=== PATIENT | male | born 1945 | race Two or more races ===

== ENCOUNTER 2024-10-02 13:32 | Outpatient (AMB) | payer OTHER, SELFPAY ==
--- NOTE | 2024-10-02 13:38 | MHC.OFFVIS ---
Vital Signs 10/02/24 14:00 Height 5 ft 2 in Weight 148 lb BMI 27.1 BP 122/82 Blood Pressure Location Lt brachial Position Sitting Intake Visit Reasons: cholelithiasis Intake Note: Patient is seen in office for evaluation of the gallbladder. Pt c/o: 3 wks ago had increase upper abdomen pain, went to ED in [facility], admits to nausea, was a one time episode Hotel And Dining Room Cashier Required: Yes Hotel And Dining Room Cashier Language: Ore Trimmer Services: Hotel And Dining Room Cashier Present Hotel And Dining Room Cashier Name: Lisa MCDUFFIE Information Interpreted: non-clinical & clinical Accompanied by: Self / Same As Patient Allergies No Known Allergies Allergy (Verified 10/02/24 13:46) Medication List - Last Reconciled 10/02/24 by Kolton Valentine MD amlodipine 5 mg PO DAILY aspirin 81 mg PO DAILY atorvastatin 80 mg PO DAILY cholecalciferol (vitamin D3) 325 mcg PO QWEEK docusate sodium (Colace) 100 mg PO BID doxazosin 2 mg PO DAILY metformin 500 mg PO BID metoprolol succinate ER 50 mg PO DAILY nitroglycerin 0.4 mg sublingual Q5M PRN HPI Comments Details: 79-year-old male patient presenting with complaints of abdominal pain in the epigastrium and right upper quadrant which began at approximately 03:00 on 09/06/2024. He was subsequently evaluated in the emergency department at [facility]. The pain was associated with nausea without vomiting. He denied a previous history of similar pain. Workup in the emergency department revealed gallstones within the gallbladder without a Villanueva sign. He was subsequently discharged to home but noted another day of abdominal pain following this episode. He presents today to discuss possible cholecystectomy. He felt the pain was very severe and does not want to go through this once again. COUNT INCLUDES [facility] Medical History (Updated 10/02/24 @ 15:05 by Kolton Valentine MD) Hypertension BPH (benign prostatic hyperplasia) CAD (coronary artery disease) Surgical History (Updated 10/02/24 @ 14:09 by Kolton Valentine MD) S/P CABG x 4 Hx of heart surgery Social History Alcohol intake: current Alcohol intake frequency: holidays/special occasions only Patient Tobacco Use Status: Never used Tobacco Review of Systems Const All systems reviewed & are unremarkable except as noted in HPI and below Physical Exam Vital Signs: Last Vital Signs BP 122/82 10/02/24 14:00 BMI result Body Mass Index 27.1 Const General: cooperative and no acute distress Nutritional Appearance: well nourished Orientation/consciousness: patient oriented x3 Limitations: no limitations HEENT Head: Yes normocephalic and Yes atraumatic Ears: hearing grossly normal bilaterally Resp Effort & Inspection: normal respiratory effort, no audible wheezes, no cough and no respiratory distress Cardio Jugular venous distension: no JVD GI Inspection: Yes normal to inspection Palpation (GI): Soft to palpation, nontender, no guarding and No hepatosplenomegaly present Percussion: Yes normal to percussion Auscultation: normal bowel sounds Rectal Exam - Male: Yes deferred Skin Other: Warm, dry, no rash Neuro General: patient oriented x3 Extrem General: Yes no clubbing, cyanosis or edema Assessment & Plan Assessment & Plan (1) Cholelithiasis: Code(s): K80.20 - Calculus of gallbladder without cholecystitis without obstruction Category: Medical Qualifiers: Biliary obstruction: without biliary obstruction Cholecystitis acuity: acute Cholelithiasis location: gallbladder (2) Biliary colic: Code(s): K80.50 - Calculus of bile duct without cholangitis or cholecystitis without obstruction Category: Medical Plan 79-year-old male patient presenting with complaints of abdominal pain in the right upper quadrant and epigastrium found to have gallstones with pericholecystic fluid. The pain subsequently improved however the patient was quite concerned about the severity of his pain. Currently the patient has no ongoing symptoms and on examination his abdomen is soft and nondistended, nontender. We discussed observation verses laparoscopic cholecystectomy. He wishes to proceed with the surgery. After discussion of the procedure, risks, and alternatives, he consents to a laparoscopic or possible open cholecystectomy. Coding Level of Care Code New Pt Level 4 (26351) Diagnoses Cholelithiasis K80.20 Biliary obstruction: without biliary obstruction Cholecystitis acuity: acute Cholelithiasis location: gallbladder Biliary colic K80.50
[2024-10-02 14:00] VITALS: BP 122/82; BMI 27.1
--- OUTSIDE RECORDS SUMMARY | 2024-10-02 14:34 | XMS_ITS | Encounter Summary ---
Author Organization [employer] Address [address] [place] [address] Care Team Providers Care Ui Architect Name Role Phone Unavailable Primary Care Provider Unavailabl e Reason for Visit * Reason Onset Date Comments case back from lab??/appt 11/09/2023 Encounter Details Date Type Department Care Team (Late st Contact Info) Description 11/09/2023 Telephone [facility] [address] [place] [address] Deirdre Heath DDS [address] [place] [address] case back from lab??/appt Social History Tobacco Use Types Packs/Day Years Used Date Smoking Tobacco: Never Assessed Alcohol Use Standard Drinks/Week Comments Defer 0 (1 standard drink = 0.6 oz pur e alcohol) Sex and Gender Information Value Date Recorded Sex Assigned at Male 08/13/2023 1:56 PM EDT Legal Sex Male 1:45 PM EDT Gender Identity Male 08/13/2023 1:56 PM EDT Sexual Orientation Straight 08/13/2023 1: 56 PM EDT documented as of this encounter Miscellaneous Notes * Telephone Encounter - Siddharth Rodriguez DDS - 11/15/2023 3:50 PM EDT Kenrick Ryder, Case is here, could you please book an appointment with Dr. Cooper for Wax Trying . Thanks, Dr. Rodriguez * Telephone Encounter - Britni Key - 11/15/2023 10:26 AM EDT Message for Dr. Cooper Patient calling in to confirm if case is back from lab. * Telephone Encounter - Sugar Orantes - 11/09/2023 12:09 PM EDT Patient called about his dentures can we finf if there here and book the patient for dr cooper documented in this encounter Plan of Treatment Not on file documented as of this encounter Visit Diagnoses Not on filedocumented in this encounter
--- OUTSIDE RECORDS SUMMARY | 2024-10-02 14:34 | XMS_ITS | Clinical Summary ---
Author Organization [facility] Address [address] [place] [address] Care Team Providers Care Combination Machine Tender Name Role Phone Everette Hastings MD Primary Care Provider Unavailab le Allergies No known active allergies Medications Medication Sig Dispensed Refills Start Date End Date Status metoprolol succinate (TOPROL-XL) 24 hr tablet 50 mg Take 1 tablet (50 mg total) by mouth daily. 0 Active metFORMIN (GLUCOPHAGE) tablet 500 mg Take 1 tablet (500 mg total) by mouth 2 (two) times a day with meals. 0 Active doxazosin (CARDURA) 2 MG tablet Take 1 tablet (2 mg total) by mouth every night at bedtime. 0 Active amLODIPine (NORVASC) tablet 5 mg Take 1 tablet (5 mg total) by mouth daily. 0 Active atorvastatin (LIPITOR) tablet 80 mg Take 1 tablet (80 mg total) by mouth daily. 0 Active aspirin EC 81 MG tablet Take 1 tablet (81 mg total) by mouth daily. 0 Active Cholecalciferol (Vitamin D3) 50 MCG (2000 UT) TABS Take 2,000 Units by mouth daily. 0 Active Cyanocobalamin 1000 MCG CAPS Take 1 capsule by mouth daily. 90 capsule 1 03/21/2024 Active Social History Tobacco Use Types Packs/Day Years Used Date Smoking Tobacco: Former Cigarettes Tobacco Cessation:Counseling Given: Not Answered Comments:Quit smoking at least 30 years ago Alcohol Use Standard Drinks/Week Comments Yes 0 (1 standard drink = 0.6 oz pur e alcohol) 2-3 beers once a week Sex and Gender Information Value Date Recorded Sex Assigned at Not on file Gender Identity Not on file Sexual Orientation Not on file Job Start Date Occupation Industry Not on file Not on file Not on file Last Filed Vital Signs Vital Sign Reading Time Taken Comments Blood Pressure 139/64 03/21/2024 1:24 PM EDT Pulse 65 03/21/2024 1:24 PM EDT Temperature 36.5 ??C (97.7 ??F) 03/21/2024 1:24 PM ED T Respiratory Rate - - Oxygen Saturation 98% 03/21/2024 1:24 PM EDT Inhaled Oxygen Concentration - - Weight 67 kg (147 lb 12.8 oz) 03/21/2024 1:24 PM EDT Height 154.9 cm (5' 1 ) 03/06/2024 10:43 AM EDT Body Mass Index 27.93 03/06/2024 10:43 AM EDT Plan of Treatment Health Maintenance Due Date Last Done Comments Hepatitis C Screening 1945 COVID-19 Vaccine (#1) 1945 Depression Screening 1957 Preventative Health Evaluation 1963 Shingrix-Zoster Vaccine (1 of 2) 1995 Fall Risk Assessment 2010 RSV Adult > 60+ Yrs or (1 - 1-dose 75+ series) 2020 Influenza Vaccine (#1) 2024 9, 02/08/2018, 02/26/2017, Additional history exists DTap / Tdap / Td (2 - Td or Tdap) 03/11/2029 03/11/2019 Pneumococcal Vaccine Completed 01/29/2019, 02/09/20 18 Hepatitis B Vaccines Aged Out No long er eligible based on patient's age to complete this topic RSV Ped < 20 months Aged Out No longe r eligible based on patient's age to complete this topic Care Teams Combination Machine Tender Relationship Specialty Start Date End Date Everette Hastings MD PCP - General Internal Medicine 01/30/24
--- OUTSIDE RECORDS SUMMARY | 2024-10-02 14:34 | XMS_ITS | Clinical Summary ---
Author Organization [employer] Address [address] [facility] [address] [facility] [address] [place] [address] Care Team Providers Care Train Caller Name Role Phone Unavailable Primary Care Provider Unavailabl e Allergies No known active allergies Medications metFORMIN (Glucophage) 500 MG tablet 08/11/2023 Active atorvastatin (Lipitor) 80 MG tablet Take 80 mg by mouth. 07/19/2021 Active amLODIPine (Norvasc) 5 MG tablet Take 1 tablet by mouth in the morning. 09/12/2021 Active amLODIPine (Norvasc) 5 MG tablet Take 5 mg by mouth. 02/03/2021 Active doxazosin (Cardura) 2 MG tablet Take 2 mg by mouth. 06/07/2020 Active metoprolol succinate XL (Toprol-XL) 50 MG 24 hr tablet 08/29/2023 Act tae cholecalciferol (Vitamin D-3) 25 MCG (1000 UT) capsule Take by mouth. 06/30/2020 Active aspirin 81 MG EC tablet Take 81 mg by mouth Once per day. Active Active Problems Problem Noted Date Diagnosed Date CAD (coronary artery disease) 09/07/2023 HTN (hypertension) 09/07/2023 Simple renal cyst 09/07/2023 S/P CABG x 4 09/07/2023 Encounter for abdominal aortic aneurysm (AAA) sc reening 03/11/2019 Exposure to hepatitis 03/11/2019 Benign prostatic hyperplasia with lower urinary tract symptoms 11/25/2018 Essential hypertension 11/25/2018 Social History Tobacco Use Types Packs/Day Years Used Date Smoking Tobacco: Never Smokeless Tobacco: Never Tobacco Cessation:Counseling Given: Not Answered Alcohol Use Standard Drinks/Week Comments Never 0 (1 standard drink = 0.6 oz pur e alcohol) Sex and Gender Information Value Date Recorded Sex Assigned at Male 08/13/2023 1:56 PM EDT Legal Sex Male 1:45 PM EDT Gender Identity Male 08/13/2023 1:56 PM EDT Sexual Orientation Straight 08/13/2023 1: 56 PM EDT Last Filed Vital Signs Vital Sign Reading Time Taken Comments Blood Pressure 132/70 11/16/2023 1:37 PM EDT Pulse - - Temperature - - Respiratory Rate - - Oxygen Saturation - - Inhaled Oxygen Concentration - - Weight - - Height - - Body Mass Index - - Plan of Treatment Health Maintenance Due Date Last Done Comments Dental Prophylaxis 1945 Dental X-Ray: Bitewings 1945 Depression Screening 1945 Lipid Panel 1945 SDOH Screening 1945 Alcohol/Substance Use Screening 1957 Hepatitis C Screening 1963 Zoster Vaccines (2 of 3) 11/18/2015 09/23/2015 RSV Patients and Patients Aged 60 years or older (1 - 1-dose 75+ series) 2020 COVID-19 Vaccine ( season) 2024 03/11/2023, 02/06/2022, 08/21/2021, Additional history exists Influenza Vaccine (#1) 2024 , 02/06/2022, 01/19/2021, Additional history exists Dental Oral Exam 03/09/2024 09/07/2023 Tobacco Screening 11/22/2024 11/23/2023 Dental X-Ray: Full Mouth 09/28/2026 09/28/2023 DTaP/Tdap/Td Vaccines (3 - Td or Tdap) 03/11/2029 03/11/2019, 01/05/2017 Pneumococcal Vaccine: 50+ Years Completed 01/29/2019, 02/08/2018, 03/22/2017, Additional history exists HIB Vaccines Aged Out No longer eligi ble based on patient's age to complete this topic HPV Vaccines Aged Out No longer eligi ble based on patient's age to complete this topic Hepatitis A Vaccines Aged Out No long er eligible based on patient's age to complete this topic Hepatitis B Vaccines Aged Out No long er eligible based on patient's age to complete this topic IPV Vaccines Aged Out No longer eligi ble based on patient's age to complete this topic Meningococcal Vaccine Aged Out No jean willy eligible based on patient's age to complete this topic RSV under 20 months Aged Out No longe r eligible based on patient's age to complete this topic Rotavirus Vaccines Aged Out No longer eligible based on patient's age to complete this topic Procedures Procedure Name Priority Date/Time Associated Diagnosis Comments PANORAMIC RADIOGRAPHIC IMAGE Routine 09/28/2023 10:00 AM EDT Edentulous COMPREHENSIVE ORAL EVALUATION - NEW OR ESTABLISHED PATIENT Routine 09/07/2023 1:30 PM EDT Encounter for dental examination Edentulous from Last 3 Months or Most Recently Relevant to Health Maintenance Insurance DENTAL - HSN FULL (MEDICAID)
--- OUTSIDE RECORDS SUMMARY | 2024-10-02 14:34 | XMS_ITS | Encounter Summary ---
Author Organization [facility] Address [address] [place] [address] Care Team Providers Care Motor Vehicles Supervisor Name Role Phone Everette Hastings MD Primary Care Provider [phone] Encounter Details Date Type Department Care Team (Late st Contact Info) Description 03/21/2024 1:05 PM EDT Hospital Encounter TH HISTORIC ENCOUNTERS EASTERN CONVERSION ONLY Christine Perez PA [address] [place] [id number] Social History Tobacco Use Types Packs/Day Years [...] Perez PA-C Service: -- Author Type: Physician Insole Tacker Filed: 03/21/2024 2:15 PM Encounter Date: 03/21/2024 Status: Signed Charging Crane Operator: Christine Perez PA-C (Physician Insole Tacker) Cosigner: Mahin Beyer MD at 03/23/2024 3:[address] Venkata Gaviria, Thank you very much for referring this patient for consultation. HPI: 78-year-old Trinidadian-speaking male who returns to our hematology clinic [...] COLONOSCOPY 11/23/2014 ? 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 FAMILY HISTORY: No family history [...] Hastings MD Sign: Christine Perez PA-C Hematology/Oncology [facility] [phone] documented in this encounter Plan of Treatment Upcoming Encounters Date Type Department Care Team (Late st Contact Info) Description 12/24/2024 11:00 AM EDT Office Visit Internal Medicine - [place] [address] [place] [address] Everette Hastings MD 175 [facility] [address] [place] [address] 09/22/2025 1:30 PM EDT Office Visit [facility] Hematology Oncology [address] [place] [phone] Christine Perez PA [address] [place] [address] documented as of this encounter Procedures Procedure Name Priority Date/Time Associated Diagnosis Comments ..MISCELLANEOUS REFERENCE LAB TEST 03/21/2024 ..MISCELLANEOUS REFERENCE LAB TEST 03/21/2024 documented in this encounter Results * Miscellaneous reference lab test (03/21/2024) us Provider Onbase MD LAB BLOOD ORDERABLES Final Re sult * Miscellaneous reference lab test (03/21/2024) us Provider Onbase MD LAB BLOOD ORDERABLES Final Re sult documented in this encounter Visit Diagnoses Not on filedocumented in this encounter Care Teams Motor Vehicles Supervisor Relationship Specialty Start Date End Date Everette Hastings MD [address] [address] PCP - General 01/30/24 documented as of this encounter
--- OUTSIDE RECORDS SUMMARY | 2024-10-02 14:34 | XMS_ITS | Encounter Summary ---
Author Organization [facility] Address [address] [place] [address] Care Team Providers Care Pulping Machine Operator Name Role Phone Everette Hastings MD Primary Care Provider [phone] Encounter Details Date Type Department Care Team (Late st Contact Info) Description 03/06/2024 10:30 AM EDT Hospital Encounter TH HISTORIC ENCOUNTERS EASTERN CONVERSION ONLY Christine Perez PA [address] [place] [phone] Social History Tobacco Use Types Packs/Day Years [...] Perez PA-C Service: -- Author Type: Physician Engineer Second Assistant Filed: 03/06/2024 11:08 AM Encounter Date: 03/06/2024 Status: Signed Recycle Driver: Christine Perez PA-C (Physician Engineer Second Assistant) Cosigner: Mahin Beyer MD at 03/06/2024 11:56 [...] COLONOSCOPY 11/23/2014 ? 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 FAMILY HISTORY: History reviewed. No pertinent family [...] Hastings MD Sign: Christine Perez PA-C Hematology/Oncology [facility] [phone] documented in this encounter Plan of Treatment Upcoming Encounters Date Type Department Care Team (Late st Contact Info) Description 12/24/2024 11:00 AM EDT Office Visit Internal Medicine - [place] [address] [phone] Everette Hastings MD 175 [facility] [address] [place] [address] 09/22/2025 1:30 PM EDT Office Visit [facility] Hematology Oncology [address] [place] [phone] Christine Perez PA [address] [place] [address] documented as of this encounter Procedures Procedure Name Priority Date/Time Associated Diagnosis Comments ..MISCELLANEOUS REFERENCE LAB TEST 03/06/2024 documented in this encounter Results * Miscellaneous reference lab test (03/06/2024) us Provider Onbase LAB BLOOD ORDERABLES Final Re sult documented in this encounter Visit Diagnoses Not on filedocumented in this encounter Care Teams Pulping Machine Operator Relationship Specialty Start Date End Date Everette Hastings MD [address] [place] [address] PCP - General 01/30/24 documented as of this encounter
--- OUTSIDE RECORDS SUMMARY | 2024-10-02 14:35 | XMS_ITS | Clinical Summary ---
Author Organization [facility] Address [address] [place] [address] Care Team Providers Care Lockstitch Sleeve Setter Name Role Phone Dillan Dumont Primary Care Provider [phone] Source Comments PLEASE NOTE, if this patient is a minor, it may be UNLAWFUL to discuss sensitive information that is contained in these records (such as FAMILY PLANNING, MENTAL HEALTH or SUBSTANCE ABUSE) with the minor patient's parent or other person without the patient's specific authorization.[facility] Allergies No known active allergies Medications doxazosin (CARDURA) 2 mg tabletIndications :Benign prostatic hyperplasia with lower urinary tract symptoms, symptom details unspecified TAKE 1 TABLET BY MOUTH EVERYDAY AT BEDTIME 30 Tablet 3 1 Active PROLENSA 0.07 % drop INSTILL 1 DROP IN OPERATED EYE EVERY EVENING DIRECTED 3 Active amLODIPine (NORVASC) 5 mg tabletIndications :Essential hypertension Take 1 Tablet by mouth once daily 90 Tablet 1 4 Active atorvastatin (LIPITOR) 80 mg tabletIndications :Hypercholesterol emia Take one tablet by mouth daily 90 Tablet 1 4 Active metFORMIN (GLUCOPHAGE) 500 mg tabletIndications :Controlled type 2 diabetes mellitus without complication, without long-term current use of insulin ([facility]) Take one tablet by mouth twice daily. 90 Tablet 4 Active metoprolol succinate XL (TOPROL-XL) 50 mg 24 hr tabletIndications :Essential hypertension,Hype rcholesterolemia, Primary hypertension Take one tablet by mouth once daily. 90 Tablet 4 Active Active Problems Patient Care Coordination No te Formatting of this note migh t be different from the original. Pre Visit Plan, 03/11/19, for Dillan Sandra PA-C patient in for follow up - ?CPE. Fredis Bearden. Medical Records needed. 11/25/14, seen to establish care. 150/82. Active problems of BPH and essential HTN. Regimen: Doxazosin 2mg tab for 1 tab PO QHS and amlodipine 5mg. 12/09/18, BP check: 138/85. Problem Noted Date Diagnosed Date Exposure to hepatitis 03/11/2019 Encounter for abdominal aortic aneurysm (AAA) sc reening 03/11/2019 Benign prostatic hyperplasia with lower urinary tract symptoms 11/25/2018 Essential hypertension 11/25/2018 Immunizations Immunization Administration Dates Next Due Influenza (FLUZONE), high-do se, trivalent, PF 01/29/2019,02/08/2018,02/26/2017,03/04,02/08/2015,02/27/2014 PNEUMOCOCCAL CONJUGATE PCV 13 02/08/2018 PNEUMOCOCCAL POLYSACCHARIDE PPV23 (Pneumovax 23) 01/29/2019 TDAP 03/11/2019 Social History Tobacco Use Types Packs/Day Years Used Date Smoking Tobacco: Former Smokeless Tobacco: Never Comments:35 years ago Alcohol Use Standard Drinks/Week Comments Yes 0 (1 standard drink = 0.6 oz pur e alcohol) Social Connections Answer Date Recorded Connectedness 0 02/07/2024 Financial Resource Strain Answer Date R ecorded Financial Resource Strain 0 2018 Stress Answer Date Recorded Stress 0 01/20/2019 Physical Activity Answer Date Recorded Physical Activity 0 01/20/2019 Food Insecurity Answer Date Recorded Food 0 02/21/2024 Transportation Needs Answer Date Record ed Transportation 0 01/20/2019 Housing Stability Answer Date Recorded Housing 0 01/20/2019 Safety and Environment Answer Date Ronaldo rded Safety 0 01/20/2019 Utilities Answer Date Recorded Utilities 0 01/20/2019 Employment Answer Date Recorded Stress 0 02/07/2024 Sex and Gender Information Value Date Recorded Sex Assigned at Male 11/25/2018 10:37 AM PDT Legal Sex Male 6:28 AM PDT Gender Identity Male 11/25/2018 10:37 AM PDT Sexual Orientation Straight 11/25/2018 10 :37 AM PDT Last Filed Vital Signs Vital Sign Reading Time Taken Comments Blood Pressure 138/78 06/02/2019 2:44 PM EST Pulse 76 06/02/2019 2:44 PM EST Temperature 36.6 ??C (97.8 ??F) 06/02/2019 2:44 PM ES T Respiratory Rate 18 06/02/2019 2:44 PM EST Oxygen Saturation 100% 11/25/2018 1:39 PM EDT Inhaled Oxygen Concentration - - Weight 69.4 kg (153 lb) 06/02/2019 2:44 PM EST Height 157.5 cm (5' 2 ) 06/02/2019 2:44 PM EST Body Mass Index 27.98 06/02/2019 2:44 PM EST Plan of Treatment Health Maintenance Due Date Last Done Comments Diabetes Foot Exam 1945 Diabetes HbA1c 1945 Hepatitis C Screening 1945 Lipid Screening 1945 Serum Creatinine 1945 Tobacco Screening 1945 Urine Albumin Creatinine Rat io Screening 1945 Retinopathy Screening 1958 Imm-Zoster, Recombinant (1 of 2) 1995 Falls Prevention 2010 Alcohol and Drug Screen 05/28/2024 Depression Annual Screen 05/28/2024 [id number] ( season) 2024 02/05/2024, 03/11/2023, 02/06/2022, Additional history exists Imm-DTaP/Tdap/Td (2 - Td or Tdap) 03/11/2029 019 Imm-Pneumococcal 65+ Completed 01/29/2019, 02/09/20 18 Colorectal Cancer Screening Discontinued FIT/gFOBT Discontinued 02/17/2020, 12/03/2018 Imm-Influenza Completed 02/05/2024, 01/27, 02/06/2022, Additional history exists CT Colonography Discontinued Colonoscopy Discontinued Fecal DNA Discontinued Flexible Sigmoidoscopy Discontinued Procedures Procedure Name Priority Date/Time Associated Diagnosis Comments FECAL OCCULT BLOOD HEMOCCULT X3, MENG SUZI (POCT) Routine 02/17/2020 11:10 AM EDT Colon cancer screening from Last 3 Months or Most Recently Relevant to Health Maintenance Results * FECAL OCCULT BLOOD HEMOCCULT X3, MENG SUZI (POCT) (02/17/2020 11:10 AM EDT) FECAL OCCULT BLOOD NEGATIVE NEGATIVE [facility] PO[facility] FECAL OCCULT BLOOD #2 NEGATIVE NEGATIVE [facility] FECAL OCCULT BLOOD #3 NEGATIVE NEGATIVE [facility] Stool specimen (specimen) Stool specimen / Unknown 02/17/2020 11:10 AM EDT [facility] - BLOOD DRAW Final Result [facility] POCT from Last 3 Months or Most Recently Relevant to Health Maintenance Insurance [facility] Care Teams Lockstitch Sleeve Setter Relationship Specialty Start Date End Date Dillan Dumont PA [address] [place] [address] PCP - General Internal Medicine 10/16/18
== END 2024-10-02 14:09 | disposition home or self-care (01) ==
LOC: HO.HGS 13:33
PROVIDERS: PCP Internal Medicine; Visit Provider Surgery
DX: K80.20 Calculus of gallbladder without cholecystitis without obstruction (principal); K80.50 Calculus of bile duct without cholangitis or cholecystitis without obstruction
CPT/HCPCS: 99204

== ENCOUNTER → 2024-10-02 13:32 | Outpatient (BNVA) | payer OTHER, SELFPAY | PROVIDERS: PCP Internal Medicine; Visit Provider Surgery ==

== ENCOUNTER 2025-02-11 10:38 | Day surgery (SDC) | payer MEDICARE, SELFPAY ==
--- OUTSIDE RECORDS SUMMARY | 2024-03-06 10:30 | XMS_ITS | Encounter Summary ---
Author Organization [facility] Address [address] [place] [address] Care Team Providers Care Clinical Specialist Medical Device Name Role Phone Everette Hastings MD Primary Care Provider [phone] Encounter Details Date Type Department Care Team (Late st Contact Info) Description 03/06/2024 10:30 AM EDT Hospital Encounter TH HISTORIC ENCOUNTERS EASTERN CONVERSION ONLY Christine Perez PA [address] [place] [address] Social History Tobacco Use Types Packs/Day Years [...] Perez PA-C Service: -- Author Type: Physician Quill Cleaning Machine Operator Filed: 03/06/2024 11:08 AM Encounter Date: 03/06/2024 Status: Signed Direct Selling Counselor: Christine Perez PA-C (Physician Quill Cleaning Machine Operator) Cosigner: Mahin Beyer MD at 03/06/2024 11:[address] Venkata Gaviria, Thank you very much for referring [...] COLONOSCOPY 11/23/2014 ? 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 FAMILY HISTORY: History reviewed. No [...] Hastings MD Sign: Christine Perez PA-C Hematology/Oncology [facility] [phone] documented in this encounter Plan of Treatment Upcoming Encounters Date Type Department Care Team (Late st Contact Info) Description 09/22/2025 1:30 PM EDT Office Visit [facility] Hematology Oncology [address] [place] [phone] Christine Perez PA [address] [place] [address] 11/30/2025 11:00 AM EDT Ancillary Procedure [facility] - [address] [place] [address] [place] [phone] documented as of this encounter Procedures Procedure Name Priority Date/Time Associated Diagnosis Comments ..MISCELLANEOUS REFERENCE LAB TEST 03/06/2024 documented in this encounter Results * Miscellaneous reference lab test (03/06/2024) us Provider Onbase LAB BLOOD ORDERABLES Final Re sult documented in this encounter Visit Diagnoses Not on filedocumented in this encounter Care Teams Clinical Specialist Medical Device Relationship Specialty Start Date End Date Everette Hastings MD 175 [facility] [address] [place] [address] PCP - General 01/30/24 documented as of this encounter
--- OUTSIDE RECORDS SUMMARY | 2024-03-21 13:05 | XMS_ITS | Encounter Summary ---
Author Organization [facility] Address [address] [place] [address] Care Team Providers Care Security Nurse Name Role Phone Everette Hastings MD Primary Care Provider [phone] Encounter Details Date Type Department Care Team (Late st Contact Info) Description 03/21/2024 1:05 PM EDT Hospital Encounter TH HISTORIC ENCOUNTERS EASTERN CONVERSION ONLY Christine Perez PA [address] [place] [address] Social History Tobacco Use Types Packs/Day Years [...] Perez PA-C Service: -- Author Type: Physician Tape Rules Printing Machine Operator Filed: 03/21/2024 2:15 PM Encounter Date: 03/21/2024 Status: Signed Supervisor Of Communications: Christine Perez PA-C (Physician Tape Rules Printing Machine Operator) Cosigner: Mahin Beyer MD at 03/23/2024 3:[address] Venkata Gaviria, Thank you very much for referring this patient for consultation. HPI: 78-year-old Czech-speaking male who returns to our hematology clinic [...] COLONOSCOPY 11/23/2014 ? 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 FAMILY HISTORY: No family history [...] Hastings MD Sign: Christine Perez PA-C Hematology/Oncology [facility] [phone] documented in this encounter Plan of Treatment Upcoming Encounters Date Type Department Care Team (Late st Contact Info) Description 09/22/2025 1:30 PM EDT Office Visit [facility] Hematology Oncology [address] [place] [address] Christine Perez PA [address] [place] [address] 11/30/2025 11:00 AM EDT Ancillary Procedure [facility] - [address] [place] [address] documented as of this encounter [...] on filedocumented in this encounter Care Teams Security Nurse Relationship Specialty Start Date End Date Everette Hastings MD [address] [facility] [address] [place] [address] PCP - General 01/30/24 documented as of this encounter
[2025-02-05 11:45] VITALS: BP 139/73; PULSE 61; RESP 16; O2SAT 96; BMI 26.7
--- NOTE | 2025-02-05 12:19 | HO.ANESPROP2 ---
Documented by User: Tessa Cates NP 02/10/25 12:23 HPI - Anesthesia Eval Consult details Narrative: 79yo M for Cholecystectomy Laparoscopic,possible open, 02/11/25 Cardiac optimized. Follows [facility] for CAD s/p IN and CABG x 4 2020. Pt denies need for any nitro. No recent illness No CP/SOB with exercising Critical high K @ 6 on 02/05/25. PCP rx'd kayexelate x 1 - K normalized to 4.8 PRIOR to dosage. No repeat labs ordered by PCP. Will repeat DOS to ensure K remains within safe range. [facility] Active Problems Active Problems: All Active Problems Biliary colic (Acute) Cholelithiasis (Acute) S/P CABG x 4 (Acute 2020) Hypertension (Acute) BPH (benign prostatic hyperplasia) (Acute) CAD (coronary artery disease) (Acute) Past Medical History Medical History Hx of myocardial infarction Wears dentures Simple cyst of kidney Essential hypertension Mixed hyperlipidemia Diabetes Venous insufficiency Hypertension BPH (benign prostatic hyperplasia) CAD (coronary artery disease) Family History Family history of problems with anesthesia: No Surgical History Surgical History Hx of oral surgery Hx of colonoscopy (2014) Hx of cataract extraction S/P CABG x 4 (2020) History of Problems with Anesthesia: No Social History Social History Household Members: None Housing: House Are you a primary customer care specialist to a significant other at home: No Do you presently have visiting nurse or other home services: No Alcohol intake: current Alcohol intake frequency: holidays/special occasions only Patient Tobacco Use Status: Never used Tobacco Use of substances other than those prescribed or required for medical reasons: No Have you been hit, kicked, punched, or otherwise hurt by someone within the past year? If so, by whom?: No Are you DNR?: No Advance Directives: No Advance Directives Information Provided: Yes Advance Directives on File: No Current occupational status: retired Meds Allergies Allergy/AdvReac Type Severity Reaction Status Date / Time No Known Allergies Allergy Verified 02/05/25 12:08 Home Medications ?Medication ?Instructions ?Recorded ?Confirmed ?Last Taken ?Type amlodipine 5 mg tablet 5 mg PO DAILY 10/02/24 02/05/25 02/10/25 History aspirin 81 mg tablet,delayed 81 mg PO DAILY 10/02/24 02/05/25 02/09/25 History release atorvastatin 80 mg tablet 80 mg PO DAILY 10/02/24 02/05/25 02/10/25 History docusate sodium 100 mg capsule 100 mg PO BID PRN Constipation 10/02/24 02/05/25 02/10/25 History (Colace) doxazosin 2 mg tablet 2 mg PO DAILY 10/02/24 02/05/25 02/10/25 History metformin 500 mg tablet 500 mg PO BID 10/02/24 02/05/25 02/10/25 History metoprolol succinate 50 mg 50 mg PO DAILY 10/02/24 02/05/25 02/10/25 History tablet,extended release 24 hr nitroglycerin 0.4 mg sublingual 0.4 mg sublingual Q5M PRN Chest 10/02/24 02/05/25 Unknown History tablet Pain cholecalciferol (vitamin D3) 50 50 mcg PO DAILY 02/05/25 02/05/25 02/10/25 History mcg (2,000 unit) tablet (Vitamin D3) Exam Height,Weight and Vital Signs: Height 5 ft 2 in Weight 66.224 kg Last Vital Signs Pulse 61 02/05/25 11:45 Resp 16 02/05/25 11:45 BP 139/73 02/05/25 11:45 Pulse Ox 96 02/05/25 11:45 O2 Del Method Room Air 02/05/25 11:45 Pertinent Lab Results Pertinent Lab Results: Laboratory Tests 02/05/25 12:47 WBC 5.4 Hgb 14.1 Hct 41.4 L Plt Count 187 Sodium 140 Potassium 6.0 H* Chloride 108 Carbon Dioxide 26 BUN 16 Creatinine 0.74 02/09/25 Sodium 133 - 145 mmol/L 139 Potassium 3.5 - 5.5 mmol/L 4.8 Chloride 96 - 110 mmol/L 107 CO2 21 - 32 mmol/L 26 Anion Gap 3 - 11 6 Glucose 70 - 100 mg/dL 95 BUN 5 - 25 mg/dL 26?High? Creatinine 0.70 - 1.30 mg/dL 0.67?Low? Narrative Narrative: EKG 11/2024 ECG Interpretation Sinus bradycardia Otherwise normal ECG When compared with ECG of 10-JUN-2020 16:02, Criteria for Inferior infarct are no longer Present T wave inversion no longer evident in Inferior leads Confirmed by JOHN ZAMUDIO ([id number]) on 12/08/2024 5:01:12 PM Airway Mallampati Class: III TM Dist: <=3cm Neck ROM: Full Denture: Upper and Lower Heart: RRR Lungs: CTAB Assessment and Plan Assessment Anesthesia Assessment: Anesthesia Plan Discussed and PAT Visit Final Anesthetic Review Family History of Problems with Anesthesia: No History of Problems with Anesthesia: No Documented by User: Kodi Cervantes MD 02/11/25 13:14 PMF Past Medical History Medical History Hx of myocardial infarction Wears dentures Simple cyst of kidney Essential hypertension Mixed hyperlipidemia Diabetes Venous insufficiency Hypertension BPH (benign prostatic hyperplasia) CAD (coronary artery disease) Functional capacity: independent ambulation Surgical History Surgical History Hx of oral surgery Hx of colonoscopy (2014) Hx of cataract extraction S/P CABG x 4 (2020) Social History Social History Household Members: None Housing: House Are you a primary customer care specialist to a significant other at home: No Do you presently have visiting nurse or other home services: No Alcohol intake: current Alcohol intake frequency: holidays/special occasions only Patient Tobacco Use Status: Never used Tobacco Use of substances other than those prescribed or required for medical reasons: No Have you been hit, kicked, punched, or otherwise hurt by someone within the past year? If so, by whom?: No Are you DNR?: No Advance Directives: No Advance Directives Information Provided: Yes Advance Directives on File: No Current occupational status: retired Meds Allergies Allergy/AdvReac Type Severity Reaction Status Date / Time No Known Allergies Allergy Verified 02/05/25 12:08 Home Medications ?Medication ?Instructions ?Recorded ?Confirmed ?Last Taken ?Type amlodipine 5 mg tablet 5 mg PO DAILY 10/02/24 02/05/25 02/10/25 History aspirin 81 mg tablet,delayed 81 mg PO DAILY 10/02/24 02/05/25 02/09/25 History release atorvastatin 80 mg tablet 80 mg PO DAILY 10/02/24 02/05/25 02/10/25 History docusate sodium 100 mg capsule 100 mg PO BID PRN Constipation 10/02/24 02/05/25 02/10/25 History (Colace) doxazosin 2 mg tablet 2 mg PO DAILY 10/02/24 02/05/25 02/10/25 History metformin 500 mg tablet 500 mg PO BID 10/02/24 02/05/25 02/10/25 History metoprolol succinate 50 mg 50 mg PO DAILY 10/02/24 02/05/25 02/10/25 History tablet,extended release 24 hr nitroglycerin 0.4 mg sublingual 0.4 mg sublingual Q5M PRN Chest 10/02/24 02/05/25 Unknown History tablet Pain cholecalciferol (vitamin D3) 50 50 mcg PO DAILY 02/05/25 02/05/25 02/10/25 History mcg (2,000 unit) tablet (Vitamin D3) Exam Exam Date and Time: 02/11/25 Airway Other: ormal Assessment and Plan Final Anesthetic Review NPO: Yes ASA Class: III Final Preanesthetic Review: No Changes in Pt Med Stat, Meds/Allgs Chart Reviewed, Consent Obtained/Reviewed and Anes Risks/Benef Reviewed Patient Risk: Low Procedure Risk: Low Anesthetic Plan Anesthetic Plan: GA
[2025-02-05 13:42] LABS: Hematocrit 41.4 % (42.0-52.0); Hemoglobin 14.1 g/dl (14.0-18.0); Mean Corpuscular HGB Conc 34.1 g/dl (31.0-36.0); Mean Corpuscular Hemoglobin 29.3 pg (27.0-33.0); Mean Corpuscular Volume 85.9 fL (80.0-98.0); NRBC Abs Auto 0.000 X10*3/uL (0.0-0.012); NRBC Pct Auto 0.0 /100WBC (0.0-0.2); Platelet Count 187 X10*3/uL (160-400); Red Blood Count 4.82 X10*6/uL (4.60-5.80); White Blood Count 5.4 X10*3/uL (4.8-10.8)
[2025-02-05 14:24] LABS: Anion Gap 12 (12-20); Blood Urea Nitrogen 16 mg/dL (9-16); Calcium 9.5 mg/dL (8.4-10.2); Carbon Dioxide 26 mmol/L (22-29); Chloride 108 mmol/L (96-108); Creatinine Clr Calc Pharmacy 67.8; Estimated Glomerular Filt Rate > 60; Sodium 140 mmol/L (135-145)
[2025-02-05 14:29] LABS: Potassium 6.0 mmol/L (3.3-5.1)
--- OUTSIDE RECORDS SUMMARY | 2025-02-05 16:21 | XMS_ITS | Encounter Summary ---
Author Organization [facility] Address [address] [place] [address] Care Team Providers Care Endbander Name Role Phone Everette Hastings MD Primary Care Provider [phone] Encounter Details Date Type Department Care Team (Late Contact Info) Description 01/14/2025 Telephone Internal Medicine [facility] [address] [phone] Everette Hastings MD 175 [facility] [address] [place] [address] Social History Tobacco Use Types Packs/Day Years [...] on file documented as of this encounter Plan of Treatment Upcoming Encounters Date Type Department Care Team (Late Contact Info) Description 09/22/2025 1:30 PM EDT Office Visit [facility] Hematology Oncology [address] [place] [phone] Christine Perez PA [address] [place] [address] 11/30/2025 11:00 AM EDT Ancillary Procedure [facility] - [facility] [address] [facility] [address] [place] [phone] documented as of this encounter Visit Diagnoses Not on filedocumented in this encounter Care Teams Endbander Relationship Specialty Start Date End Date Everette Hastings MD [address] [place] [address] PCP - General 01/30/24 documented as of this encounter
--- OUTSIDE RECORDS SUMMARY | 2025-02-05 16:21 | XMS_ITS | Encounter Summary ---
Author Organization [facility] Address [address] [place] [address] Care Team Providers Care Bladder Cleaner Name Role Phone Everette Hastings MD Primary Care Provider [phone] Reason for Visit * Reason Onset Date Comments lab work 02/05/2025 Encounter Details Date Type Department Care Team (Late st Contact Info) Description 02/05/2025 Telephone Internal Medicine - [place] 175 [facility] [address] [place] [address] More Quintana, GEO Social History Tobacco Use Types Packs/Day Years [...] on file documented as of this encounter Progress Notes * More Quintana RN - 02/05/2025 2:[address] Hastings, pt's potassium was critical 6.0 at surgery pre-op with [facility] - they said that you had to treat it, not them. Please advise Got a call from [facility] general surgery office, Niranjan Her phone # [phone] They are doing his gallbladder surgery next week, they were doing some pre op labwork and potassiumwas critical: His K was 6.0, the sample was lightly hemolyzed Needs to be treated by PCP, they will not do the treatment documented in this encounter Plan of Treatment Upcoming Encounters Date Type Department Care Team (Late st Contact Info) Description 09/22/2025 1:30 PM EDT Office Visit [facility] Hematology Oncology [address] [place] [address] Christine Perez PA [address] [place] [address] 11/30/2025 11:00 AM EDT Ancillary Procedure [facility] - [address] [place] [address] documented as of this encounter Visit Diagnoses Not on filedocumented in this encounter Care Teams Bladder Cleaner Relationship Specialty Start Date End Date Everette Hastings MD 175 [facility] [address] [place] [address] PCP - General 01/30/24 documented as of this encounter
--- OUTSIDE RECORDS SUMMARY | 2025-02-05 16:21 | XMS_ITS | Encounter Summary ---
Author Organization [facility] Address [address] [facility] [address] [place] [address] Care Team Providers Care Pigment Processor Name Role Phone Unavailable Primary Care Provider Unavailabl e Reason for Visit * Reason Onset Date Comments case back from lab??/appt 11/09/2023 Encounter Details Date Type Department Care Team (Late st Contact Info) Description 11/09/[address] [facility] [address] [place] [address] Deirdre Heath DDS [address] [place] [address] case back from lab??/appt Social History Tobacco [...]
--- OUTSIDE RECORDS SUMMARY | 2025-02-05 16:21 | XMS_ITS | Clinical Summary ---
Author Organization [facility] Address [address] [place] [address] Care Team Providers Care Doubler Helper Name Role Phone Everette Hastings MD Primary [...] 65 03/21/2024 1:24 PM EDT Temperature 36.5 C (97.7 F) 03/21/2024 1:24 PM EDT Respiratory Rate - - Oxygen Saturation 98% [...] 1-dose 75+ series) 2020 Influenza Vaccine (#1) 2025 9, 02/08/2018, 02/26/2017, Additional history exists DTap / Tdap / Td (2 - Td or Tdap) 03/11/2029 03/11/2019 Pneumococcal Vaccine Completed 01/29/2019, 02/09/20 18 Hepatitis B Vaccines Aged Out No long er eligible based on patient's age to complete this topic RSV Ped < 20 months Aged Out No longe r eligible based on patient's age to complete this topic Care Teams Doubler Helper Relationship Specialty Start Date End Date Everette Hastings MD PCP - General Internal Medicine 01/30/24
--- OUTSIDE RECORDS SUMMARY | 2025-02-05 16:21 | XMS_ITS | Clinical Summary ---
Author Organization [facility] Address [address] [place] [address] Care Team Providers Care Piano And Organ Refinisher Name Role Phone Dillan Dumont Primary Care Provider [phone] Source Comments PLEASE NOTE, if this patient [...] complication, without long-term current use of insulin ([facility]) Take one tablet by mouth twice daily. [...] 76 06/02/2019 2:44 PM EST Temperature 36.6 C (97.8 F) 06/02/2019 2:44 PM EST Respiratory Rate 18 06/02/2019 2:44 PM EST Oxygen Saturation 100% 11/25/2018 1:39 PM EDT Inhaled Oxygen Concentration - - Weight 69.4 kg (153 lb) 06/02/2019 2:44 PM EST Height 157.5 cm (5' 2 ) 06/02/2019 2:44 PM EST Body Mass Index 27.98 06/02/2019 2:44 PM EST Plan of Treatment Health Maintenance Due Date Last Done Comments Hepatitis C Screening 1945 Tobacco Screening 1945 Imm-Zoster, Recombinant (1 of 2) 1995 Falls Prevention 2010 Alcohol and Drug Screen 05/28/2024 Depression Annual Screen 05/28/2024 [id number] ( season) 2025 02/02/2025, 03/11/2023, 02/06/2022, Additional history exists Imm-DTaP/Tdap/Td (2 - Td or Tdap) 03/11/2029 019 Imm-Pneumococcal 50+ Completed 01/29/2019, 02/09/20 18 Colorectal Cancer Screening Discontinued FIT/gFOBT Discontinued 02/17/2020, 12/03/2018 Imm-RSV (adult) Completed 02/15/2023 Imm-Influenza Completed 02/02/2025, 01/26, 02/15/2023, Additional history exists CT Colonography Discontinued Colonoscopy Discontinued Fecal DNA Discontinued Flexible Sigmoidoscopy Discontinued Procedures Procedure Name Priority Date/Time Associated Diagnosis Comments FECAL OCCULT BLOOD HEMOCCULT X3, MENG SUZI (POCT) Routine 02/17/2020 11:10 AM EDT Colon cancer screening from Last 3 Months or Most Recently Relevant to Health Maintenance Results * FOBT/FIT (Stool Occult Blood Test) (POCT) (02/17/2020 11:10 AM EDT) FECAL OCCULT BLOOD NEGATIVE NEGATIVE [facility] POCT FECAL OCCULT BLOOD #2 NEGATIVE NEGATIVE [facility] POCT FECAL OCCULT BLOOD #3 NEGATIVE NEGATIVE [facility] POCT Stool specimen (specimen) Stool specimen / Unknown 02/17/2020 11:10 AM EDT Dillan [facility] BODY FLUIDS AND STOOLS AMB ULATORY Final Result [facility] POCT from Last 3 Months or Most Recently Relevant to Health Maintenance Insurance [facility] Member Subscriber Plan / Payer (Ef fective 2023-Present) Name:Phoenix Hilliard Relation to Subscriber:Self Name:Phoenix Hilliard Payer ID:[id number] (NAIC) Type:Indemnity Address: [facility] [id number] [place] [id number] Care Teams Piano And Organ Refinisher Relationship Specialty Start Date End Date Dillan Dumont PA [address] [place] [address] PCP - General Internal Medicine 10/16/18
--- OUTSIDE RECORDS SUMMARY | 2025-02-05 16:21 | XMS_ITS | Patient Health Record ---
Author Organization [facility] Address [address] [place] [address] Care Team Providers Care Rheumatologist Name Role Phone Mehrdad PIZARRO, Rebel Primary Care Provider James Gabriel Unavailable [phone] Reason For Referral No Information Medications Medication SIG (Take, Route, Frequency, Duration) Notes Start Date End Date Status amLODIPine Besylate 5 MG 1 tablet Orally Once a day Active Doxazosin Mesylate 2 MG Oral; Duration: 90 Active Social History Tobacco use other than smoking: Question Answer Notes Are you an other tobacco user? No Problems Problem Type SNOMED Code ICD Code Onset Dates Problem Status W/U Status Risk Notes Problem Onychomycosis (772273827) Onychomycosis (110.1) Active confirmed Problem Pain in limb (82845077) Pain in Limb (729.5) Active confirmed Problem Paronychia (81401423) Paronychia (681.11) Active confirmed Plan Of Treatment Pending Test Test Name Order Date 82453 I&D ABSCESS- SIMPLE,SINGLE 014 Insurance Providers Payer Name Payer Address Payer Phone Subscriber Number Group Number Insured Name Patient Relationship to Insured Coverage Start Date Coverage End Date [facility] Medicare Complete [address] [address] [place] [address] [phone] [id number] Phoenix Hilliard Self - patient is the insured Medical (General) History Medical History History ICD Code High blood pressure
--- OUTSIDE RECORDS SUMMARY | 2025-02-05 16:21 | XMS_ITS | Clinical Summary ---
Author Organization [facility] Address [address] [place] [address] Phone Care Team Providers Care Shrub Planter Name Role Phone Everette Hastings MD Primary Care Provider [phone] Allergies No known active allergies Medications aspirin 81 mg EC tablet Take 1 tablet (81 mg total) by mouth 1 (one) time each day. 01/24/2024 Active cholecalciferol (VITAMIN D-3) 50 mcg (2,000 unit) tablet Take 1 tablet (2,000 Units total) by mouth 1 (one) time each day in the morning. 01/24/2024 Active doxazosin (CARDURA) 2 mg tablet TAKE 1 TABLET BY MOUTH AT BEDTIME 100 tablet 2 07/17/2024 Active atorvastatin (LIPITOR) 80 mg tablet TAKE 1 TABLET BY MOUTH ONCE DAILY 100 tablet 2 07/24/2024 Active metoprolol succinate (TOPROL-XL) 50 mg 24 hr tablet TAKE 1 TABLET BY MOUTH DAILY 90 tablet 3 09/16/2024 Active amLODIPine (NORVASC) 5 mg tablet TAKE 1 TABLET BY MOUTH DAILY 100 tablet 2 12/12/2024 Active metFORMIN (GLUCOPHAGE) 500 mg tablet TAKE 1 TABLET BY MOUTH TWICE DAILY 200 tablet 2 12/12/2024 Active Active Problems Problem Noted Date Diagnosed Date Venous insufficiency 12/08/2024 Assessment & Plan (12/08/2024 1:17 PM EDT): Edema likely secondary to venous insufficiency. Continue with furosemide. Continue with compression stockings. Educated about reducing sodium intake, elevation of extremities while seated, weight loss and exercise. Preop cardiovascular exam 12/08/2024 Overview (12/08/2024): 12/08/24 - preop for cholecystectomy Assessment & Plan (12/08/2024 1:17 PM EDT): The patient is here for preop cardiovascular examination prior to a cholecystectomy timing tba. Pre-procedure EKG was completed today and showed no new changes. Per the [place]casio Cardiac Risk Index the patient is low for this procedure. He is stable from a cardiovascular standpoint and is not recommended for any preoperative testing given he is reaching above 4.0 METs without symptoms. Please continue with his metoprolol and amlodipine perioperatively. He may discontinue with aspirin prior to surgery. Please avoid large fluid shifts, sustained tachycardia or profound anemia in order to prevent demand ischemic events. Type 2 diabetes mellitus wit hout complication, without long-term current use of insulin ([facility] V24, [facility] V28) 02/23/2022 Mixed hyperlipidemia 08/08/2021 Assessment & Plan (12/08/2024 1:17 PM EDT): Continue with atorvastatin. BPH (benign prostatic hyperplasia) 08/10/2020 Coronary artery disease invo lving chefornak coronary artery of chefornak heart without angina pectoris 08/10/2020 Overview (12/08/2024): 2020 - inferior wall myocardial infarction and subsequent discovery of severe triple-vessel coronary artery disease status post quadruple coronary artery bypass grafting with ESTRADA to LAD, left radial to OM1, SVG to PDA and SVG to diagonal Assessment & Plan (12/08/2024 1:17 PM EDT): Catheterization from 2020 showed multivessel disease status post successful four vessel CABG. No anginal symptoms. Continue with aspirin, atorvastatin, amlodipine, and metoprolol. We discussed risk reduction through lifestyle choices including healthy diet, routine exercise and weight management. Orders: ECG 12 lead Transthoracic echocardiogram (TTE) complete with PRN contrast, bubble, strain, and 3D order panel; Future perflutren lipid microsphere (DEFINITY) 1.3 mL in sodium chloride 0.9% 8.7 mL injection Essential hypertension 08/10/2020 Assessment & Plan (12/08/2024 1:17 PM EDT): Elevated. Continue with amlodipine and metoprolol. Simple cyst of kidney 08/10/2020 Overview (04/27/2024): Simple cyst of kidney, right Encounters Date Type Department Care Team Description 02/05/2025 Telephone Internal Medicine [facility] [address] [place] [phone] More Quintana RN 01/14/2025 Telephone Internal Medicine [facility] [address] [place] [phone] Everette Hastings MD 12/24/2024 11:00 AM EDT Office Visit Internal Medicine [facility] [address] [facility] [address] [place] [phone] Everette Hastings MD Coronary artery disease involving chefornak coronary artery of chefornak heart without angina pectoris (Primary Dx); Hypercholesterolemia; Type 2 diabetes mellitus without complication, without long-term current use of insulin ([facility] V24, [facility] V28) 12/09/2024 Telephone [facility] Cardiology [facility] [address] [place] [address] John Zamudio MD 12/08/2024 12:40 PM EDT Consult [facility] Cardiology [facility] [address] [place] [address] Omari Mercado NP Preop cardiovascular exam (Primary Dx); Coronary artery disease involving chefornak coronary artery of chefornak heart without angina pectoris; Essential hypertension; Mixed hyperlipidemia; Venous insufficiency 11/13/2024 3:00 PM EDT Consult Orthopedic Surgery [facility] [address] [place] [phone] Janet Torre PA Dupuytren contracture of right hand 11/10/2024 Telephone [facility] Cardiology [facility] [address] [place] [address] John Zamudio MD from Last 3 Months Surgical History Surgery Date Site/Laterality Comments COLONOSCOPY 11/23/2014 PROCEDURE: HISTORICAL COLONOSCOPY CATARACT EXTRACTION PROCEDURE: HISTORICAL CATARACT REMOVAL Medical History Medical History Date Comments BPH (benign prostatic hyperplasia) 08/10/2020 DX:BPH (benign prostatic hyperplasia) Simple cyst of kidney 08/10/2020 DX:Simple cyst of kidney CAD (coronary artery disease) 08/10/2020 DX :CAD (coronary artery disease); COMMENT: S/p CABG Social History Tobacco Use Types Packs/Day Years Used Date Smoking Tobacco: Former Tobacco Cessation:Counseling Given: Not Answered Alcohol Use Standard Drinks/Week Comments Yes 0 (1 standard drink = 0.6 oz pur e alcohol) beer occassionally Sex and Gender Information Value Date Recorded Sex Assigned at Not on file Legal Sex Male 12:52 AM EDT Gender Identity Not on file Sexual Orientation Not on file Obstetrics History Last Filed Vital Signs Vital Sign Reading Time Taken Comments Blood Pressure 122/70 12/24/2024 10:32 AM EDT Pulse 65 12/24/2024 10:32 AM EDT Temperature 37 C (98.6 F) 12/24/2024 10:32 AM EDT Respiratory Rate - - Oxygen Saturation 98% 12/24/2024 10:32 AM EDT Inhaled Oxygen Concentration - - Weight 66.2 kg (146 lb) 12/24/2024 10:32 AM EDT Height 157.5 cm (5' 2 ) 12/24/2024 10:32 AM EDT Body Mass Index 26.7 12/24/2024 10:32 AM EDT Plan of Treatment Upcoming Encounters Date Type Department Care Team (Late st Contact Info) Description 09/22/2025 1:30 PM EDT Office Visit [facility] Hematology Oncology [address] [place] [phone] Christine Perez PA [address] [place] [address] 11/30/2025 11:00 AM EDT Ancillary Procedure [facility] [address] [place] [address] [place] [phone] Health Maintenance Due Date Last Done Comments Diabetes: Annual Foot Exam 1955 Diabetes: Annual Retina Eye Exam 1955 Zoster Vaccines (2 of 3) 11/18/2015 09/23/2015 Falls Risk Assessment 05/06/2022 Hepatitis C Screening 05/06/2022 Social Influencers of Health Screening 05/06/2022 Diabetes: Annual Urine Albumin-Creatinine Ratio (uACR) 02/24/2023 02/24/2022 Medicare Annual Wellness Visit 11/28/2023 11/27/2022 Depression Screening 05/28/2024 Diabetes: Blood Sugar Control Test (HGBA1C) 12/24/2024 06/26/2024, 01/24/2024, 01/24/2024 COVID-19 Vaccine ( season) 2025 02/05/2024, 03/11/2023, 02/06/2022, Additional history exists Influenza Vaccine (#1) 2025 , 02/15/2023, 02/06/2022, Additional history exists Diabetes: Annual GFR (Glomerular Filtration Rate) 09/15/2025 09/15/2024, 06/26/2024, 01/24/2024, Additional history exists Hypertension/CHF/CAD Annual BMP Blood Test 09/15/2025 09/15/2024, 06/26/2024, 01/24/2024, Additional history exists DTaP,Tdap,and Td Vaccines (3 - Td or Tdap) 03/11/2029 03/11/2019, 01/05/2017 Cholesterol Screening (Lipid Panel) 06/26/2029 06/26/2024, 01/24/2024, 01/24/2024 Pneumococcal Vaccine: 50+ Years Completed 01/29/2019, 02/08/2018, 03/22/2017, Additional history exists RSV Immunization Adult Patients Completed 02/15/2023 HIB Vaccines Aged Out No longer eligi [...] on patient's age to complete this topic MMR Vaccines Aged Out No longer eligi ble based on patient's age to complete this topic Meningococcal ACWY Vaccine Aged Out N o longer eligible based on patient's age to complete this topic Meningococcal B Vaccine Aged Out No l onger eligible based on patient's age to complete this topic RSV Immunization Patients Under 20 months Aged Out No longer eligible based on patient's age to complete this topic Varicella Vaccines Aged Out No longer eligible based on patient's age to complete this topic Procedures Procedure Name Priority Date/Time Associated Diagnosis Comments ECG 12-LEAD Routine 12/08/2024 12:52 PM EDT Coronary artery disease involving chefornak coronary artery of chefornak heart without angina pectoris COMPREHENSIVE METABOLIC PANEL Routine 09/15/2024 9:46 AM EDT Anemia, unspecified Pernicious anemia HEMOGLOBIN A1C Routine 06/26/2024 1:16 PM EST Coronary artery disease involving chefornak coronary artery of chefornak heart without angina pectoris Type 2 diabetes mellitus without complication, without long-term current use of insulin (CMS/HCC V24, CMS/HCC V28) Essential hypertension Mixed hyperlipidemia LIPID PANEL WITH REFLEX TO DIRECT LDL Routine 06/26/2024 1:16 PM EST Coronary artery disease involving chefornak coronary artery of chefornak heart without angina pectoris Type 2 diabetes mellitus without complication, without long-term current use of insulin (CMS/HCC V24, CMS/HCC V28) Essential hypertension Mixed hyperlipidemia HM URINE ALBUMIN CREATININE RATIO Routine 02/24/2022 from Last 3 Months or Most Recently Relevant to Health Maintenance Results * ECG 12 lead (12/08/2024 12:52 PM EDT) Ventricular Rate ECG 58 BPM GEMUSE Atrial Rate 58 BPM GEMUSE P-R Interval 136 ms GEMUSE QRS Duration 78 ms GEMUSE Q-T Interval 426 ms GEMUSE QTc 418 ms GEMUSE P Wave [place] 54 degrees GEMUSE R [place] -21 degrees GEMUSE T [place] 19 degrees GEMUSE ECG Interpretation Sinus bradycardia Otherwise normal ECG When compared with ECG of 10-JUN-2020 16:02, Criteria for Inferior infarct are no longer Present T wave inversion no longer evident in Inferior leads Confirmed by JOHN ZAMUDIO ([id number]) on 12/08/2024 5:01:12 PM GEMUSE 12/08/2024 12:2 6 PM EDT 12/08/2024 5:01 PM EDT Omari Mercado AUXILIARY EQUIPMENT TENDER ECG ORDERABLES Edited Resu lt - Final GEMUSE * (ABNORMAL) Comprehensive metabolic panel (09/15/2024 9:46 AM EDT) Sodium 137 133 - 145 mmol/L LAB CHEMISTRY METHOD 09/15/2024 4:53 PM [facility] Potassium 5.5 3.5 - 5.5 mmol/L LAB CHEMISTRY METHOD 09/15/2024 4:53 PM [facility] Chloride 105 96 - 110 mmol/L LAB CHEMISTRY METHOD 09/15/2024 4:53 PM [facility] CO2 27 21 - 32 mmol/L LAB CHEMISTRY METHOD 09/15/2024 4:53 PM [facility] Anion Gap 5 3 - 11 LAB CHEMISTRY METHOD 09/15/2024 4:53 PM [facility] Glucose 120(H) 70 - 100 mg/dL LAB CHEMISTRY METHOD 09/15/2024 4:53 PM [facility] BUN 17 5 - 25 mg/dL LAB CHEMISTRY METHOD 09/15/2024 4:53 PM [facility] Creatinine 0.74 0.70 - 1.30 mg/dL LAB CHEMISTRY METHOD 09/15/2024 4:53 PM [facility] eGFR 92 >=60 mL/min/1. 73m2 LAB CHEMISTRY METHOD 09/15/2024 4:53 PM [facility] Comment:Calculation based on the Chronic Kidney Disease Epidemiology Collaboration (CKD-EPI) equation refit without adjustment for race. BUN/Creatinine Ratio 23.0 LAB CHEMISTRY METHOD 09/15/2024 4:53 PM EDT [facility] Calcium 9.7 8.5 - 10.5 mg/dL LAB CHEMISTRY METHOD 09/15/2024 4:53 PM EDT [facility] AST (SGOT) 23 10 - 42 unit/L LAB CHEMISTRY METHOD 09/15/2024 4:53 PM EDT [facility] ALT (SGPT) 29 10 - 60 unit/L LAB CHEMISTRY METHOD 09/15/2024 4:53 PM EDT [facility] Alkaline Phosphatase 137(H) 42 - 121 unit/L LAB CHEMISTRY METHOD 09/15/2024 4:53 PM EDT [facility] Total Protein 7.4 6.0 - 8.0 g/dL LAB CHEMISTRY METHOD 09/15/2024 4:53 PM EDT [facility] Albumin 4.0 3.2 - 5.0 g/dL LAB CHEMISTRY METHOD 09/15/2024 4:53 PM EDT [facility] Total Bilirubin 1.2 0.0 - 1.4 mg/dL LAB CHEMISTRY METHOD 09/15/2024 4:53 PM EDT [facility] Blood Venous blood specimen / Unknown Venipuncture / Unknown 09/15/2024 9:46 AM EDT 09/15/2024 12:32 PM EDT us Christine MONROE LAB BLOOD ORDERABLES Final Re sult [facility] [address] [place] [address], * Lipid panel with reflex to direct LDL (06/26/2024 1:16 PM EST) Cholesterol 78 0 - 200 mg/dL LAB CHEMISTRY METHOD 06/26/2024 6:36 PM EST [facility] Triglycerides 31 0 - 150 mg/dL LAB CHEMISTRY METHOD 06/26/2024 6:36 PM EST [facility] HDL 52 >=40 mg/dL LAB CHEMISTRY METHOD 06/26/2024 6:36 PM [facility] LDL Calculated 20 0 - 100 mg/dL LAB CHEMISTRY METHOD 06/26/2024 6:36 PM EST [facility] VLDL Cholesterol Reyes 6.2 mg/dL LAB CHEMISTRY METHOD 06/26/2024 6:36 PM EST [facility] Non HDL Chol. (LDL+VLDL) 26 <145 mg/dL LAB CHEMISTRY METHOD 06/26/2024 6:36 PM [facility] Chol/HDL Ratio 1.5 0.0 - 4.4 LAB CHEMISTRY METHOD 06/26/2024 6:36 PM [facility] Blood Venous blood specimen / Unknown Venipuncture / Unknown 06/26/2024 1:16 PM EST 06/26/2024 1:16 PM EST us Everette Hastings MD LAB BLOOD ORDERABLES Final Resul t [facility] [address] [place] [address], [place] [phone] * Hemoglobin A1c (06/26/2024 1:16 PM EST) Hemoglobin A1C 6.3 <6.5 % LAB CHEMISTRY METHOD 06/26/2024 9:18 PM EST [facility] Mean Bld Glu Estim. 134 mg/dL LAB CHEMISTRY METHOD 06/26/2024 9:18 PM EST [facility] Blood Venous blood specimen / Unknown Venipuncture / Unknown 06/26/2024 1:16 PM EST 06/26/2024 1:16 PM EST us Everette Hastings MD LAB BLOOD ORDERABLES Final Resul t [email or web address] [address] [place] [address], * Urine Albumin Creatinine Ratio (02/24/2022) Urine Albumin Creatinine Ratio abstracted us Historical Provider HEALTH MAINTENANCE Final Result from Last 3 Months or Most Recently Relevant to Health Maintenance Insurance [employer] MEDICARE [place]ICAID - [place] Care Teams Shrub Planter Relationship Specialty Start Date End Date Everette Hastings MD [address] [address] PCP - General 01/30/24
--- OUTSIDE RECORDS SUMMARY | 2025-02-05 16:21 | XMS_ITS | Clinical Summary ---
Author Organization [employer] Address [address] [place] [address] Care Team Providers Care Pearl Technician Name Role Phone Unavailable Primary Care Provider [...] Zoster Vaccines (2 of 3) 11/18/2015 09/23/2015 Dental Oral Exam 03/09/2024 09/07/2023 Tobacco Screening 11/22/2024 11/23/2023 COVID-19 Vaccine ( season) 2025 03/11/2023, 02/06/2022, 08/21/2021, Additional history exists Influenza Vaccine (#1) 2025 , 02/06/2022, 01/19/2021, Additional history exists Dental X-Ray: Full Mouth 09/28/2026 09/28/2023 DTaP/Tdap/Td Vaccines (3 - Td or Tdap) 03/11/2029 03/11/2019, 01/05/2017 Pneumococcal Vaccine: 50+ Years Completed 01/29/2019, 02/08/2018, 03/22/2017, Additional history exists RSV Patients and Patients Aged 60 years or older Completed 02/15/2023 HIB Vaccines Aged Out No [...]
[2025-02-11] VITALS (8 sets, daily range): BP systolic 110–143; BP diastolic 50–70; PULSE 61–79; RESP 16–19; TEMP 36.1–36.5; O2SAT 93–99; BMI 26.3
[2025-02-11] MEDS: Lactated Ringers 1,000 ML 100 ML IVCONT (10:56)
[2025-02-11 11:01] LABS: Glucose, Whole Blood 120 mg/dL (60-115)
[2025-02-11 11:52] LABS: Anion Gap 14 (12-20); Blood Urea Nitrogen 20 mg/dL (9-16); Calcium 9.2 mg/dL (8.4-10.2); Carbon Dioxide 26 mmol/L (22-29); Chloride 106 mmol/L (96-108); Creatinine Clr Calc Pharmacy 65.1; Estimated Glomerular Filt Rate > 60; Potassium 4.5 mmol/L (3.3-5.1); Sodium 141 mmol/L (135-145)
--- NOTE | 2025-02-11 12:46 | MHC.SHP ---
Pre-Procedural Eval Section A - 24 Hr Update-Section A only Date of Service: 02/11/25 The patient is an INPATIENT: No Changes since office visit: Yes Patient answered all questions; No Cold of Flu in the past 2 weeks, No New Medical Problems and No Changes in Medication The patient has been examined within 24 hours of the surgical procedure. The History & Physical has been completed within 30 days and I have reviewed it.: Yes Section B - Complete if H&P > 30 days Chief Complaint: Calculus of bile duct without cholangitis Details of Present Illness: No changes noted Relevant Family History (Specify if Yes): No Relevant Social History: None Present Medications: see Short Stay Collaborative assessment Medical History: No relevant PMH History of Previous Operations: No relevant previous surgery Allergies: Allergies Allergy/AdvReac Type Severity Reaction Status Date / Time No Known Allergies Allergy Verified 02/05/25 12:08 Review of Systems Sugical H&P ROS: Negative: Constitution, Cardiovascular, Respiratory, Neurological, Psychiatric, Allergic/Immunologic, Gastrointestinal, Genitourinary, Musculoskeletal and Integumentary Exam Surgical H&P Exam: Normal: HEENT, Normal: Heart, Normal: Lungs, Normal: Extremities, Normal: Abdomen and Normal: Skin Plan Diagnosis/Plan: Unchanged I have reviewed the history and physical and performed a pertinent physical examination on my patient. No changes have occurred unless specified. Time Spent With Patient Time: Total time managing care of this patient today ____ minutes.
--- NOTE | 2025-02-11 14:53 | P.OP_ITS ---
Operative Note Operative Note Date of Service: 02/11/25 Narrative: Preoperative diagnosis: Chronic cholecystitis, cholelithiasis Postoperative diagnosis: Same Procedure: Laparoscopic cholecystectomy Surgeon: Kolton Valentine MD Data Scientist: Ruthy Luna PA-C; Kenneth Page PA-C, Renetta Gutierrez, MS-3, JUAN DANIEL Aguilar Anesthesia: General endotracheal Indications for procedure: 79-year-old male patient presenting with complaints of abdominal pain in the right upper quadrant radiating to the back occurring in October. The patient underwent radiologic workup which revealed gallstones within the gallbladder. He presents today for laparoscopic cholecystectomy. Operative findings: Chronically inflamed gallbladder with dense adhesions from the transverse mesocolon. Multiple gallstones noted within the neck of the gallbladder. Specimen: gallbladder Estimated blood loss: 10 Complications: none Procedure details: Patient was brought to the OR and placed in a supine position. After administering general anesthesia the patient's abdomen was prepped with ChloraPrep and draped in a sterile fashion. A surgical time-out was called the consent confirmed. Patient received preoperative antibiotics and Venodyne boots were in place. Local anesthesia consisting of 0.5% Sensorcaine without epinephrine was infiltrated in a periumbilical region. A 5 mm incision was made above the umbilicus in a transverse fashion. The Veress needle was then inserted while elevating abdominal cavity with towel clips. After positive drop test the abdomen was insufflated to a pressure of 15 mm of mercury. The Veress needle was then removed and a 5 mm trocar inserted. The camera was inserted in the abdomen explored. A 12 mm trocar was then placed in the epigastrium. Two 5 mm trocars placed in the right upper quadrant by the credit control assistant. The patient was placed in reverse Trendelenburg positioning and rotated to the left. The gallbladder was grasped with the fundus and retracted cephalad by the credit control assistant. The infundibulum was then grasped and retracted away from the liver bed, also by the credit control assistant. The Dolphin dissected was then used by the surgeon to dissect the peritoneum off the infundibulum to reveal the junction with the cystic duct. Cystic artery was noted slightly medial and posterior to the cystic duct. After obtaining a critical view the cystic duct was doubly clipped and divided. The cystic artery was then doubly clipped and divided. The gallbladder was then dissected off the liver bed using electrocautery with an L hook. Hemostasis was assured all times using the electrocautery. When the gallbladder is completely dissected off the liver bed was placed in an Endo-Catch bag and brought out through the epigastric incision. The gallbladder was sent to pathology for further examination. The abdomen was then re-examined. The liver bed was irrigated and suctioned dry. No bleeding or bile leak could be identified. CO2 was then evacuated and all trocars removed. Fascia was closed at the epigastric incision using a [id number] 0 Polysorb suture. Skin was closed in all incisions using a subcuticular 4 0 Polysorb suture by both the surgeon and credit control assistant. Sterile dressings consisting of Steri-Strips, 2 x 2 gauze, and Tegaderm were then applied. The patient tolerated the procedure well. Sponge instrument and needle counts reported as correct. The patient was transferred to PACU in stable condition.
[2025-02-11] MEDS: oxyCODONE HCl Immed Release 5 MG TABLET PO (15:38)
== END 2025-02-11 16:41 | disposition home or self-care (01) ==
PROVIDERS: Nurse Practitioner; PCP Internal Medicine; Visit Provider Surgery
PROC: 0FT44ZZ Resection of Gallbladder, Percutaneous Endoscopic Approach (ICD-10-PCS; CPT 47562; principal; 2025-02-11 12:40)
DX: K80.10 Calculus of gallbladder with chronic cholecystitis without obstruction (principal); K82.8 Other specified diseases of gallbladder; I10 Essential (primary) hypertension; I25.10 Atherosclerotic heart disease of native coronary artery without angina pectoris; Z95.1 Presence of aortocoronary bypass graft; N40.0 Benign prostatic hyperplasia without lower urinary tract symptoms; E11.9 Type 2 diabetes mellitus without complications; Z79.82 Long term (current) use of aspirin; Z79.899 Other long term (current) drug therapy; Z79.84 Long term (current) use of oral hypoglycemic drugs; Z98.890 Other specified postprocedural states
CPT/HCPCS: 47562; 36415; 80048; 82947; 85027; 88304; J0330; J1100; J1171; J2003; J2405; J2704; J3010

== ENCOUNTER → 2025-02-11 10:38 | Outpatient (BNV) | payer MEDICARE, SELFPAY | PROVIDERS: PCP Internal Medicine; Visit Provider Surgery | DX: K80.11 Calculus of gallbladder with chronic cholecystitis with obstruction (principal) | CPT/HCPCS: 47562 ==

== ENCOUNTER 2025-03-03 12:25 | Outpatient (AMB) | payer MEDICARE, SELFPAY ==
--- OUTSIDE RECORDS SUMMARY | 2024-03-06 10:30 | XMS_ITS | Encounter Summary ---
Author Organization [facility] Address [address] [place] [address] Care Team Providers Care Hr Intern Name Role Phone Everette Hastings MD Primary Care Provider [phone] Encounter Details Date Type Department Care Team (Late st Contact Info) Description 03/06/2024 10:30 AM EDT Hospital Encounter TH HISTORIC ENCOUNTERS EASTERN CONVERSION ONLY Christine Perez PA [address] [place] [address] Social History Tobacco Use Types Packs/Day Years [...] Perez PA-C Service: -- Author Type: Physician Scaleman Filed: 03/06/2024 11:08 AM Encounter Date: 03/06/2024 Status: Signed Sports Doctor: Christine Perez PA-C (Physician Scaleman) Cosigner: Mahin Beyer MD at 03/06/2024 11:56 [...] COLONOSCOPY 11/23/2014 ? 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 FAMILY HISTORY: History reviewed. No pertinent family [...] Hastings MD Sign: Christine Perez PA-C Hematology/Oncology [facility] [phone] documented in this encounter Plan of Treatment Upcoming Encounters Date Type Department Care Team (Late st Contact Info) Description 09/22/2025 1:30 PM EDT Office Visit [facility] Hematology Oncology [address] [place] [phone] Christine Perez PA [address] [place] [address] 11/30/2025 11:00 AM EDT Ancillary Procedure [facility] - [address] [place] [place] [phone] documented as of this encounter Procedures Procedure Name Priority Date/Time Associated Diagnosis Comments ..MISCELLANEOUS REFERENCE LAB TEST 03/06/2024 documented in this encounter Results * Miscellaneous reference lab test (03/06/2024) us Provider Onbase LAB BLOOD ORDERABLES Final Re sult documented in this encounter Visit Diagnoses Not on filedocumented in this encounter Care Teams Hr Intern Relationship Specialty Start Date End Date Everette Hastings MD 175 [facility] [address] [place] [address] PCP - General 01/30/24 documented as of this encounter
--- OUTSIDE RECORDS SUMMARY | 2024-03-21 13:05 | XMS_ITS | Encounter Summary ---
Author Organization [facility] Address [address] [place] [address] Care Team Providers Care Media/Instructional Designer Name Role Phone Everette Hastings MD Primary Care Provider [phone] Encounter Details Date Type Department Care Team (Late st Contact Info) Description 03/21/2024 1:05 PM EDT Hospital Encounter TH HISTORIC ENCOUNTERS EASTERN CONVERSION ONLY Christine Perez PA [address] [place] [address] Social History Tobacco Use Types Packs/Day Years [...] Perez PA-C Service: -- Author Type: Physician Radio Frequency Technician Filed: 03/21/2024 2:15 PM Encounter Date: 03/21/2024 Status: Signed Labor Relations Consultant: Christine Perez PA-C (Physician Radio Frequency Technician) Cosigner: Mahin Beyer MD at 03/23/2024 3:[address] Venkata Gaviria, Thank you very much for referring this patient for consultation. HPI: 78-year-old Frisian-speaking male who returns to our hematology clinic [...] COLONOSCOPY 11/23/2014 ? 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 FAMILY HISTORY: No family history on file. [...] Hastings MD Sign: Christine Perez PA-C Hematology/Oncology [facility] [phone] documented in this encounter Plan of Treatment Upcoming Encounters Date Type Department Care Team (Late st Contact Info) Description 09/22/2025 1:30 PM EDT Office Visit [facility] Hematology Oncology [address] [place] [address] Christine Perez PA [address] [place] [address] 11/30/2025 11:00 AM EDT Ancillary Procedure [facility] - [address] [place] [address] documented as of this encounter [...] on filedocumented in this encounter Care Teams Media/Instructional Designer Relationship Specialty Start Date End Date Everette Hastings MD [address] [facility] [address] [place] [address] PCP - General 01/30/24 documented as of this encounter
--- NOTE | 2025-03-03 12:26 | MHC.OFFVIS ---
Vital Signs 03/03/25 12:34 Weight 147 lb BP 146/69 H Blood Pressure Location Rt brachial Position Sitting Pulse 79 Intake Visit Reasons: s/p Lap rodney Intake Note: Patient here s/p Laparoscopic cholecystectomy. Patient c/o: no concerns. Reports incisions healing well. No longer taking rx pain meds. Surgery (): 02-11-2025 Frame Polisher Required: Yes Frame Polisher Services: Frame Polisher Offered & Declined Information Interpreted: clinical only (daughter Nazanin) Allergies No Known Allergies Allergy (Verified 03/03/25 12:35) HPI HPI s/p Lap rodney: Details: Patient presenting with his daughter following laparoscopic cholecystectomy on 02/11/2025. Reports he is doing very well. They think he is healing well. He denies pain, no longer taking any pain medications. Denies nausea or vomiting, fever or chills. His diet is normal. No issues with urination or bowel movements. They are surprised at how good his incisions are healing. He has not been doing any heavy lifting. Does not do much at baseline per patient. [facility] Medical History Hx of myocardial infarction Wears dentures Simple cyst of kidney Essential hypertension Mixed hyperlipidemia Diabetes Venous insufficiency Hypertension BPH (benign prostatic hyperplasia) CAD (coronary artery disease) Surgical History Hx of oral surgery Hx of colonoscopy (2014) Hx of cataract extraction S/P CABG x 4 (2020) Social History Household Members: None Housing: House Are you a primary patient care technician instructor to a significant other at home: No Do you presently have visiting nurse or other home services: No Alcohol intake: current Alcohol intake frequency: holidays/special occasions only Patient Tobacco Use Status: Never used Tobacco Current occupational status: retired Review of Systems Const All systems reviewed & are unremarkable except as noted in HPI and below Physical Exam Vital Signs: Last Vital Signs Pulse 79 03/03/25 12:34 BP 146/69 H 03/03/25 12:34 Const General: comfortable and no acute distress Orientation/consciousness: patient oriented x3 GI Other: Incision sites healing well, no surrounding erythema, no palpable fluid collection. Nontender. No drainage There are scars from previous cardiac surgery, chest tubes. Inspection: No distended Palpation (GI): Soft to palpation and nontender Neuro General: patient oriented x3 Assessment & Plan Assessment & Plan (1) S/P laparoscopic cholecystectomy: Code(s): Z90.49 - Acquired absence of other specified parts of digestive tract Category: Medical Plan 79-year-old male s/p laparoscopic cholecystectomy on 02/11/[address] Valentine presenting to the office with his daughter Nazanin for routine follow up. He has been doing very well. No longer experiencing pain, not requiring any pain medications at home. Diet and appetite are at baseline. Bowel function and urination also at baseline. On exam his abdomen is soft and benign. Incision sites appear to be healing well, there was no concern for infection at this time. We will continue with activity restrictions for the next week. This will put him at 4 weeks postop. He is okay to resume activity next Sunday. I recommended he start at half of his baseline and work back towards his normal daily activities. At this point I do not believe that he needs any follow up. He can return as needed with any concerns or questions. He is agreeable with this plan Coding Level of Care Code Global (19258) Diagnoses S/P laparoscopic cholecystectomy Z90.49
[2025-03-03 12:34] VITALS: BP 146/69; PULSE 79
--- OUTSIDE RECORDS SUMMARY | 2025-03-03 15:18 | XMS_ITS | Clinical Summary ---
Author Organization [employer] Address [address] [facility] [address] [place] [address] Care Team Providers Care Oil Pipeline Dispatcher Name Role Phone Unavailable Primary Care Provider [...]
--- OUTSIDE RECORDS SUMMARY | 2025-03-03 15:18 | XMS_ITS | Encounter Summary ---
Author Organization [employer] Address [address] [facility] [address] [place] [address] Care Team Providers Care Employment Supervisor Name Role Phone Unavailable Primary Care Provider Unavailabl e Reason for Visit * Reason Onset Date Comments case back from lab??/appt 11/09/2023 Encounter Details Date Type Department Care Team (Late st Contact Info) Description 11/09/2023 Telephone [facility] [address] [place] [address] Deirdre Heath DDS [address] [place] [address] case back from lab??/appt Social History Tobacco [...]
--- OUTSIDE RECORDS SUMMARY | 2025-03-03 15:18 | XMS_ITS | Clinical Summary ---
Author Organization [facility] Address [address] [place] [address] Phone Care Team Providers Care Asbestos Cloth Inspector Name Role Phone Everette Hastings MD Primary Care Provider Allergies No known active allergies Medications aspirin 81 mg EC tablet Take 1 tablet (81 mg total) by mouth 1 (one) time each day. 4 Active cholecalciferol (VITAMIN D-3) 50 mcg (2,000 unit) tablet Take 1 tablet (2,000 Units total) by mouth 1 (one) time each day in the morning. 4 Active doxazosin (CARDURA) 2 mg tablet TAKE 1 TABLET BY MOUTH AT BEDTIME 100 tablet 2 5 Active atorvastatin (LIPITOR) 80 mg tablet TAKE 1 TABLET BY MOUTH ONCE DAILY 100 tablet 2 5 Active metoprolol succinate (TOPROL-XL) 50 mg 24 hr tablet TAKE 1 TABLET BY MOUTH DAILY 90 tablet 3 5 Active amLODIPine (NORVASC) 5 mg tablet TAKE 1 TABLET BY MOUTH DAILY 100 tablet 2 5 Active metFORMIN (GLUCOPHAGE) 500 mg tablet TAKE 1 TABLET BY MOUTH TWICE DAILY 200 tablet 2 5 Active sodium polystyrene (KAYEXALATE) 15 gram powder 30 g p.o. x 1 30 g 5 Active sodium polystyrene (KAYEXALATE) 15 gram powder 30 g p.o. x 1 30 g 5 02/07/20 25 Discontinu ed(Reorder ) Active Problems Problem Noted Date Diagnosed Date [...] complication, without long-term current use of insulin ([facility] V24, [facility] V28) 02/23/2022 Mixed hyperlipidemia 08/08/2021 Assessment & Plan (12/08/2024 1:17 PM EDT): Continue with atorvastatin. BPH (benign prostatic hyperplasia) 08/10/2020 Coronary artery disease invo lving coquille coronary artery of coquille heart without angina pectoris 08/10/2020 Overview (12/08/2024): [...] Encounters Date Type Department Care Team Description 02/27/2025 Results Follow-Up Internal Medicine [address] [phone] Everette Hastings MD 02/25/2025 11:15 AM EDT Office Visit Internal Medicine [address] [address] Everette Hastings MD Status post laparoscopic cholecystectomy (Primary Dx); Essential hypertension; Type 2 diabetes mellitus without complication, without long-term current use of insulin ([facility] V24, [facility] V28); Hyperkalemia 02/12/2025 Telephone Internal Medicine [address] [address] Everette Hastings MD 02/10/2025 Telephone Internal Medicine [address] [phone] Everette Hastings MD 02/05/2025 Telephone Internal Medicine [address] [address] More Quintana RN 01/14/2025 Telephone Internal Medicine [address] [address] Everette Hastings MD 12/24/2024 11:00 AM EDT Office Visit Internal Medicine [address] [phone] Everette Hastings MD Coronary artery disease involving coquille coronary artery of coquille heart without angina pectoris (Primary Dx); Hypercholesterolemia; Type 2 diabetes mellitus without complication, without long-term current use of insulin ([facility] V24, [facility] V28) 12/09/2024 Telephone [facility] [address] [place] [address] John Zamudio MD 12/08/2024 12:40 PM EDT Consult [facility] Card[facility] [address] [place] [address] Omari Mercado NP Preop cardiovascular exam (Primary Dx); Coronary artery disease involving coquille coronary artery of coquille heart without angina pectoris; Essential hypertension; Mixed hyperlipidemia; Venous insufficiency from Last 3 Months Surgical History Surgery [...] Sign Reading Time Taken Comments Blood Pressure 130/70 02/25/2025 11:29 AM EDT Pulse 65 02/25/2025 11:29 AM EDT Temperature 36.3 C (97.3 F) 02/25/2025 11:29 AM EDT Respiratory Rate - - Oxygen Saturation 98% 02/25/2025 11:29 AM EDT Inhaled Oxygen Concentration - - Weight 64.9 kg (143 lb) 02/25/2025 11:29 AM EDT Height 157.5 cm (5' 2 ) 02/25/2025 11:29 AM EDT Body Mass Index 26.16 02/25/2025 11:29 AM EDT Plan of Treatment Upcoming Encounters Date Type Department Care Team (Late st Contact Info) Description 09/22/2025 1:30 PM EDT Office Visit [facility] Hematology Oncology [address] [place] [phone] Christine Perez PA [address] [place] [address] 11/30/2025 11:00 AM EDT Ancillary Procedure [facility] - [address] [place] [phone] Health Maintenance Due Date Last Done Comments Diabetes: Annual Foot Exam 1955 Diabetes: Annual Retina Eye Exam 1955 Zoster Vaccines (2 of 3) 11/18/2015 09/23/2015 Falls Risk Assessment 05/06/2022 Hepatitis C Screening 05/06/2022 Social Influencers of Health Screening 05/06/2022 Diabetes: Annual Urine Albumin-Creatinine Ratio (uACR) 02/24/2023 02/24/2022 Medicare Annual Wellness Visit 11/28/2023 11/27/2022 Depression Screening 05/28/2024 Diabetes: Blood Sugar Control Test (HGBA1C) 08/27/2025 02/26/2025, 06/26/2024, 01/24/2024, Additional history exists Diabetes: Annual GFR (Glomerular Filtration Rate) 02/26/2026 02/26/2025, 02/09/2025, 09/15/2024, Additional history exists Hypertension/CHF/CAD Annual BMP Blood Test 02/26/2026 02/26/2025, 02/09/2025, 09/15/2024, Additional history exists DTaP,Tdap,and Td Vaccines (3 - Td or Tdap) 03/11/2029 03/11/2019, 01/05/2017 Cholesterol Screening (Lipid Panel) 06/26/2029 06/26/2024, 01/24/2024, 01/24/2024 Pneumococcal Vaccine: 50+ Years Completed 01/29/2019, 02/08/2018, 03/22/2017, Additional history exists RSV Immunization Adult Patients Completed 02/15/2023 COVID-19 Vaccine Completed 02/02/2025, 02/2024, 03/11/2023, Additional history exists Influenza Vaccine Completed 02/02/2025, , 02/15/2023, Additional history exists HIB Vaccines Aged Out [...] Procedure Name Priority Date/Time Associated Diagnosis Comments HEMOGLOBIN A1C Routine 02/26/2025 9:39 AM EDT Essential hypertension Type 2 diabetes mellitus without complication, without long-term current use of insulin (CMS/HCC V24, CMS/[facility] V28) Hyperkalemia Status post laparoscopic cholecystectomy COMPREHENSIVE METABOLIC PANEL Routine 02/26/2025 9:39 AM EDT Essential hypertension Type 2 diabetes mellitus without complication, without long-term current use of insulin (CMS/HCC V24, CMS/HCC V28) Hyperkalemia Status post laparoscopic cholecystectomy BASIC METABOLIC PANEL Routine 02/09/2025 2:14 PM EDT Hyperkalemia ECG 12-LEAD Routine 12/08/2024 12:52 PM EDT Coronary artery disease involving coquille coronary artery of coquille heart without angina pectoris LIPID PANEL WITH REFLEX TO DIRECT LDL Routine 06/26/2024 1:16 PM EST Coronary artery disease involving coquille coronary artery of coquille heart without angina pectoris Type 2 diabetes mellitus without complication, without long-term current use of insulin ([facility] V24, [facility] V28) Essential hypertension Mixed hyperlipidemia HM URINE ALBUMIN CREATININE RATIO Routine 02/24/2022 from Last 3 Months or Most Recently Relevant to Health Maintenance Results * (ABNORMAL) Hemoglobin A1c (02/26/2025 9:39 AM EDT) Pathologist [facility] Hemoglobin A1C 6.6(H) <6.5 % LAB CHEMISTRY METHOD 02/26/2025 10:[address] [facility] Mean Bld Glu Estim. 143 mg/dL LAB CHEMISTRY METHOD 02/26/2025 10:[address] [facility] Blood Venous blood specimen / Unknown Venipuncture / Unknown 02/26/2025 9:39 AM EDT 02/26/2025 9:39 AM EDT us Everette Hastings MD LAB BLOOD ORDERABLES Final Resul t [facility] [address] [place] [address], * (ABNORMAL) Comprehensive metabolic panel (02/26/2025 9:39 AM EDT) [facility] Sodium 139 133 - 145 mmol/L LAB CHEMISTRY METHOD 02/26/2025 2:[address] [facility] Potassium 4.7 3.5 - 5.5 mmol/L LAB CHEMISTRY METHOD 02/26/2025 2:[address] [facility] Chloride 109 96 - 110 mmol/L LAB CHEMISTRY METHOD 02/26/2025 2:[address] [facility] CO2 25 21 - 32 mmol/L LAB CHEMISTRY METHOD 02/26/2025 2:48 PM [facility] Anion Gap 5 3 - 11 LAB CHEMISTRY METHOD 02/26/2025 2:48 PM [facility] Glucose 103(H) 70 - 100 mg/dL LAB CHEMISTRY METHOD 02/26/2025 2:48 PM [facility] BUN 14 5 - 25 mg/dL LAB CHEMISTRY METHOD 02/26/2025 2:48 PM [facility] Creatinine 0.69(L) 0.70 - 1.30 mg/dL LAB CHEMISTRY METHOD 02/26/2025 2:48 PM [facility] eGFR 94 >=60 mL/min/1. 73m2 LAB CHEMISTRY METHOD 02/26/2025 2:48 PM [facility] Comment:Calculation based on the Chronic Kidney Disease Epidemiology Collaboration (CKD-EPI) equation refit without adjustment for race. BUN/Creatinine Ratio 20.3 LAB CHEMISTRY METHOD 02/26/2025 2:48 PM [facility] Calcium 9.2 8.5 - 10.5 mg/dL LAB CHEMISTRY METHOD 02/26/2025 2:48 PM [facility] AST (SGOT) 25 10 - 42 unit/L LAB CHEMISTRY METHOD 02/26/2025 2:48 PM [facility] ALT (SGPT) 24 10 - 60 unit/L LAB CHEMISTRY METHOD 02/26/2025 2:48 PM [facility] Alkaline Phosphatase 136(H) 42 - 121 unit/L LAB CHEMISTRY METHOD 02/26/2025 2:48 PM [facility] Total Protein 6.6 6.0 - 8.0 g/dL LAB CHEMISTRY METHOD 02/26/2025 2:48 PM [facility] Albumin 3.2 3.2 - 5.0 g/dL LAB CHEMISTRY METHOD 02/26/2025 2:48 PM [facility] Total Bilirubin 0.9 0.0 - 1.4 mg/dL LAB CHEMISTRY METHOD 02/26/2025 2:48 PM [facility] Blood Venous blood specimen / Unknown Venipuncture / Unknown 02/26/2025 9:39 AM EDT 02/26/2025 9:39 AM EDT us Everette Hastings MD LAB BLOOD ORDERABLES Final Resul t [facility] [address] [place] [address], [place] [phone] * (ABNORMAL) Basic metabolic panel (02/09/2025 2:14 PM EDT) Sodium 139 133 - 145 mmol/L LAB CHEMISTRY METHOD 02/09/2025 6:23 PM [facility] Potassium 4.8 3.5 - 5.5 mmol/L LAB CHEMISTRY METHOD 02/09/2025 6:23 PM [facility] Chloride 107 96 - 110 mmol/L LAB CHEMISTRY METHOD 02/09/2025 6:23 PM [facility] CO2 26 21 - 32 mmol/L LAB CHEMISTRY METHOD 02/09/2025 6:23 PM [facility] Anion Gap 6 3 - 11 LAB CHEMISTRY METHOD 02/09/2025 6:23 PM [facility] Glucose 95 70 - 100 mg/dL LAB CHEMISTRY METHOD 02/09/2025 6:23 PM [facility] BUN 26(H) 5 - 25 mg/dL LAB CHEMISTRY METHOD 02/09/2025 6:23 PM [facility] Creatinine 0.67(L) 0.70 - 1.30 mg/dL LAB CHEMISTRY METHOD 02/09/2025 6:23 PM [facility] eGFR 95 >=60 mL/min/1. 73m2 LAB CHEMISTRY METHOD 02/09/2025 6:23 PM [facility] Comment:Calculation based on the Chronic Kidney Disease Epidemiology Collaboration (CKD-EPI) equation refit without adjustment for race. BUN/Creatinine Ratio 38.8 LAB CHEMISTRY METHOD 02/09/2025 6:[address] [facility] Calcium 9.4 8.5 - 10.5 mg/dL LAB CHEMISTRY METHOD 02/09/2025 6:[address] [facility] Blood Venous blood specimen / Unknown Venipuncture / Unknown 02/09/2025 2:14 PM EDT 02/09/2025 2:15 PM EDT Everette Hastings MD LAB BLOOD ORDERABLES Final Resul t [facility] [address] [place] [address], [place] [phone] * ECG 12 lead (12/08/2024 12:52 PM EDT) Ventricular Rate ECG 58 BPM GEMUSE Atrial Rate 58 BPM GEMUSE P-R Interval 136 ms GEMUSE QRS Duration 78 ms GEMUSE Q-T Interval 426 ms GEMUSE QTc 418 ms GEMUSE P Wave [place] 54 degrees GEMUSE R [place] -21 degrees GEMUSE T [place] 19 degrees GEMUSE ECG Interpretation Sinus bradycardia Otherwise normal ECG When compared with ECG of 10-JUN-2020 16:02, Criteria for Inferior infarct are no longer Present T wave inversion no longer evident in Inferior leads Confirmed by JOHN ZAMUDIO ([id number]) on 12/08/2024 5:01:12 PM GEMUSE 12/08/2024 12:2 6 PM EDT 12/08/2024 5:01 PM EDT Omari Mercado BENCH ASSEMBLER BATTERY ECG ORDERABLES Edited Resu lt - Final GEMUSE * Lipid panel with reflex to direct LDL (06/26/2024 1:16 PM EST) Cholesterol 78 0 - 200 mg/dL LAB CHEMISTRY METHOD 06/26/2024 6:[address] [facility] Triglycerides 31 0 - 150 mg/dL LAB CHEMISTRY METHOD 06/26/2024 6:36 PM [facility] HDL 52 >=40 mg/dL LAB CHEMISTRY METHOD 06/26/2024 6:36 PM [facility] LDL Calculated 20 0 - 100 mg/dL LAB CHEMISTRY METHOD 06/26/2024 6:[address] [facility] VLDL Cholesterol Reyes 6.2 mg/dL LAB CHEMISTRY METHOD 06/26/2024 6:36 PM [facility] Non HDL Chol. (LDL+VLDL) 26 <145 mg/dL LAB CHEMISTRY METHOD 06/26/2024 6:36 PM [facility] Chol/HDL Ratio 1.5 0.0 - 4.4 LAB CHEMISTRY METHOD 06/26/2024 6:36 PM [facility] Blood Venous blood specimen / Unknown Venipuncture / Unknown 06/26/2024 1:16 PM EST 06/26/2024 1:16 PM EST Everette Hastings MD LAB BLOOD ORDERABLES Final Resul t [facility] [address] [place] [address], * Urine Albumin Creatinine Ratio (02/24/2022) Urine Albumin Creatinine Ratio abstracted Historical Provider HEALTH MAINTENANCE Final Result from Last 3 Months or Most Recently Relevant to Health Maintenance Insurance [employer] MEDICARE MEDICAID - [place] Care Teams Asbestos Cloth Inspector Relationship Specialty Start Date End Date Everette Hastings MD [address] [address] PCP - General 01/30/24
--- OUTSIDE RECORDS SUMMARY | 2025-03-03 15:19 | XMS_ITS | Encounter Summary ---
Author Organization [facility] Address [address] [place] [address] Care Team Providers Care Cap Maker Name Role Phone Everette Hastings MD Primary Care Provider [phone] Encounter Details Date Type Department Care Team (Late Contact Info) Description 02/27/2025 Results Follow-Up Internal Medicine - [place] [address] [phone] Everette Hastings MD 175 [facility] [address] [place] [address] Social History Tobacco Use Types Packs/Day Years [...] 1:30 PM EDT Office Visit [facility] Hematology Oncology [address] [place] [phone] Christine Perez PA [address] [place] [address] 11/30/2025 11:00 AM EDT Ancillary Procedure [facility] - [facility] [address] [facility] [address] [place] [phone] documented as of this encounter Visit Diagnoses Not on filedocumented in this encounter Care Teams Cap Maker Relationship Specialty Start Date End Date Everette Hastings MD [address] [place] [address] PCP - General 01/30/24 documented as of this encounter
--- OUTSIDE RECORDS SUMMARY | 2025-03-03 15:19 | XMS_ITS | Encounter Summary ---
Author Organization [facility] Address [address] [place] [address] Care Team Providers Care Director Embalmer Name Role Phone Everette Hastings MD Primary Care Provider [phone] Encounter Details Date Type Department Care Team (Late Contact Info) Description 02/12/2025 Telephone Internal Medicine [facility] [address] [phone] Everette Hastings MD 175 [facility] [address] [place] [address] Social History Tobacco Use Types Packs/Day Years [...] Description 09/22/2025 1:30 PM EDT Office Visit [facility] Hematology Oncology [address] [place] [phone] Christine Perez PA [address] [place] [address] 11/30/2025 11:00 AM EDT Ancillary Procedure [facility] - [facility] [address] [facility] [address] [place] [phone] documented as of this encounter Visit Diagnoses Not on filedocumented in this encounter Care Teams Director Embalmer Relationship Specialty Start Date End Date Everette Hastings MD [address] [place] [address] PCP - General 01/30/24 documented as of this encounter
--- OUTSIDE RECORDS SUMMARY | 2025-03-03 15:19 | XMS_ITS | Encounter Summary ---
Author Organization [employer] Address [address] [place] [address] Care Team Providers Care Gate Watchman Name Role Phone Everette Hastings MD Primary Care Provider [phone] Encounter Details Date Type Department Care Team (Late st Contact Info) Description 02/10/2025 Telephone Internal Medicine - [place] [address] [phone] Everette Hastings MD 175 [facility] [address] [place] [address] Social History Tobacco Use Types Packs/Day Years [...] as of this encounter Progress Notes * Joan Leonard MA - 02/13/2025 9:54 AM EDT Spoke to patient and he stated surgery for bladder was done and he had blood work done and his all set, explain to patient to please let daughter now of the conversation we had patient agreed. * Lacie Landon - 02/12/2025 1:58 PM EDT Daughter call in regards to phone call yesterday understood appt should be fior However he is post op gall bladder Contact daughter óscar -[phone] with reponse I did schedule him for feb 25, 2025 however daughter questioned if patient should be seen sooner? * Joan Leonard MA - 02/11/2025 11:02 AM EDT Left a voicemail for patient to call back the office and book an appt. * Joan Leonard MA - 02/10/2025 1:00 PM EDT Patient daughter called to make shore if patient needs another round of blood work today. * Lacie Landon - 02/10/2025 9:07 AM EDT Patient just started on potasium does have scheduled surgery @ [facility] Bladder Check with PCP if another lab should be done today Contact daughter fior documented in this encounter Plan of Treatment Upcoming Encounters Date Type Department Care Team (Late st Contact Info) Description 09/22/2025 1:30 PM EDT Office Visit [facility] Hematology Oncology [address] [place] [phone] Christine Perez PA [address] [place] [address] 11/30/2025 11:00 AM EDT Ancillary Procedure [facility] - [address] [place] [phone] documented as of this encounter Visit Diagnoses Not on filedocumented in this encounter Care Teams Gate Watchman Relationship Specialty Start Date End Date Everette Hastings MD [address] [address] PCP - General 01/30/24 documented as of this encounter
--- OUTSIDE RECORDS SUMMARY | 2025-03-03 15:19 | XMS_ITS | Clinical Summary ---
Author Organization [facility] Address [address] [place] [address] Care Team Providers Care Platen Press Operator Name Role Phone Dillan Dumont Primary Care Provider [phone] Source Comments PLEASE NOTE, if this patient [...] complication, without long-term current use of insulin Take one tablet by mouth twice daily. [...] Drug Screen 05/28/2024 Depression Annual Screen 05/28/2024 [id number] ( season) 2025 02/02/2025, 03/11/2023, 02/06/2022, Additional [...] Most Recently Relevant to Health Maintenance Insurance [facility] Care Teams Platen Press Operator Relationship Specialty Start Date End Date Dillan Dumont PA [address] [place] [address] PCP - General Internal Medicine 10/16/18
--- OUTSIDE RECORDS SUMMARY | 2025-03-03 15:19 | XMS_ITS | Clinical Summary ---
Author Organization [facility] Address [address] [place] [address] Care Team Providers Care Buttonhole Maker Hand Name Role Phone Everette Hastings MD Primary [...] age to complete this topic Care Teams Buttonhole Maker Hand Relationship Specialty Start Date End Date Everette Hastings MD PCP - General Internal Medicine 01/30/24
== END 2025-03-03 12:36 | disposition home or self-care (01) ==
LOC: HO.HGS 12:26
PROVIDERS: PCP Internal Medicine
DX: Z90.49 Acquired absence of other specified parts of digestive tract (principal)
CPT/HCPCS: 99024

== ENCOUNTER → 2025-03-03 12:25 | Outpatient (BNVA) | payer MEDICARE, SELFPAY | PROVIDERS: PCP Internal Medicine | DX: Z90.49 Acquired absence of other specified parts of digestive tract (principal); Z98.890 Other specified postprocedural states | CPT/HCPCS: 99212 ==

== ENCOUNTER 2025-05-05 14:00 | Outpatient (AMB) | payer MEDICARE, SELFPAY ==
--- OUTSIDE RECORDS SUMMARY | 2024-03-06 09:30 | XMS_ITS | Encounter Summary ---
Author Organization [facility] Address [address] [place] [address] Care Team Providers Care Health Science Writer Name Role Phone Everette Hastings MD Primary Care Provider [phone] Encounter Details Date Type Department Care Team (Late st Contact Info) Description 03/06/2024 10:30 AM EDT Hospital Encounter TH HISTORIC ENCOUNTERS EASTERN CONVERSION ONLY Christine Perez PA [address] [place] [address] Social History Tobacco Use Types Packs/Day Years Used Date Smoking Tobacco: Former Alcohol Use Standard Drinks/Week Comments Yes 0 (1 standard drink = 0.6 oz pur e alcohol) beer occassionally Sex and Gender Information Value Date Recorded Sex Assigned at Not on file Legal Sex Male 12:52 AM EDT Gender Identity Not on file Sexual Orientation Not on file documented as of this encounter Last Filed Vital Signs Vital Sign Reading Time Taken Comments Blood Pressure 123/52 03/06/2024 10:43 AM EDT Pulse 68 03/06/2024 10:43 AM EDT Temperature - - Respiratory Rate - - Oxygen Saturation - - Inhaled Oxygen Concentration - - Weight 66.7 kg (147 lb) 03/06/2024 10:43 AM EDT Height 154.9 cm (5' 1 ) 03/06/2024 10:43 AM EDT Body Mass Index 27.78 03/06/2024 10:43 AM EDT documented in this encounter Progress Notes * FER Justin - 03/06/2024 11:00 AM EDT Images from the original note were not included. Progress Notes by Christine Perez PA-C at 03/06/2024 11:00 AM Author: Christine Perez PA-C Service: -- Author Type: Physician Technical Editor Filed: 03/06/2024 11:08 AM Encounter Date: 03/06/2024 Status: Signed Scrap Metal Burner: Christine Perez PA-C (Physician Technical Editor) Cosigner: Mahin Beyer MD at 03/06/2024 11:[address] Veknata Gaviria, Thank you very much for referring this patient for consultation. HPI: 78-year-old female who was referred to our hematology clinic by PCP team for further evaluation of anemia. Records indicate presence of borderline anemia for the last couple years. Recent labs showed stableborderline anemia with hemoglobin of 13.5 and hematocrit of 41.6 with normal MCV, no other cell line abnormalities. He has normal renal and thyroid functions. Alk phos is mildly elevated, which is a chronic stable elevation since at least 2014. The other liver enzymes are normal. He drinks a couplebeers once a week. He is not on any iron or B12 supplementation. He denies any clinical bleeding or black stools. He feels generally well. He denies any debilitating fatigue, unexplained weight loss, night sweats,headache, dizziness, shortness of breath, GI symptoms. ROS: GENERAL: No malaise, significant weight loss or fever NECK: No lumps, goiter, pain or significant neck swelling RESPIRATORY: No cough, wheezing or shortness of breath CARDIOVASCULAR: No chest pain, leg swelling or palpitations GI: No abdominal discomfort, blood in stools or black stools MUSCULOSKELETAL: No joint pain or swelling, back pain, or muscle pain. HEMATOLOGY/LYMPHOLOGY No prolonged bleeding, easy bruisability or swollen nodes Other Systems review is non contributory PAST MEDICAL HISTORY: Active Ambulatory Problems Diagnosis Date Noted ? No Active Ambulatory Problems Resolved Ambulatory Problems Diagnosis Date Noted ? No Resolved Ambulatory Problems No Additional Past Medical History ? Type 2 diabetes mellitus without complication, without long-term current use of insulin (HCC) [E11.9] 02/23/2022 ? Mixed hyperlipidemia [E78.2] 08/08/2021 ? BPH (benign prostatic hyperplasia) [N40.0] 08/10/2020 ? Essential hypertension [I10] 08/10/2020 ? Simple cyst of kidney [N28.1] 08/10/2020 Simple cyst of kidney, right PAST SURGICAL HISTORY: History reviewed. No pertinent surgical history. ? HISTORICAL CATARACT REMOVAL ? HISTORICAL COLONOSCOPY 11/23/2014 ? Coronary artery disease involving [place] coronary artery of [place] heart without angina pectoris [I25.10] 08/10/2020 S/p CABG SOCIAL HISTORY: Social History Tobacco Use ? Smoking status: Former Types: Cigarettes ? Smokeless tobacco: Not on file ? Tobacco comments: Quit smoking at least 30 years ago Substance Use Topics ? Alcohol use: Yes Comment: 2-3 beers once a week He lives alone. He has 3 kids. 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 FAMILY HISTORY: History reviewed. No pertinent family history. MEDICATIONS: Current Outpatient Medications: ? amLODIPine (NORVASC) tablet 5 mg, Take 1 tablet (5 mg total) by mouth daily., Disp: , Rfl: ? aspirin EC 81 MG tablet, Take 1 tablet (81 mg total) by mouth daily., Disp: , Rfl: ? atorvastatin (LIPITOR) tablet 80 mg, Take 1 tablet (80 mg total) by mouth daily., Disp: , Rfl: ? Cholecalciferol (Vitamin D3) 50 MCG (2000 UT) TABS, Take 2,000 Units by mouth daily., Disp: , Rfl: ? doxazosin (CARDURA) 2 MG tablet, Take 1 tablet (2 mg total) by mouth every night at bedtime., Disp: , Rfl: ? metFORMIN (GLUCOPHAGE) tablet 500 mg, Take 1 tablet (500 mg total) by mouth 2 (two) times a day with meals., Disp: , Rfl: ? metoprolol succinate (TOPROL-XL) 24 hr tablet 50 mg, Take 1 tablet (50 mg total) by mouth daily.,Disp: , Rfl: You are allergic to the following No active allergies PHYSICAL EXAM: BP 123/52 Pulse 68 Temp 98.3 ??F (36.8 ??C) Ht 5' 1 (1.549 m) Wt 66.7 kg (147 lb) SpO2 98% BMI 27.78 kg/m?? APPEARANCE: Alert and in no acute distress EYES: PERRL, conjunctiva pink and sclera are Normal without icterus ORAL CAVITY: No erythema or exudates NECK: Neck supple, no adenopathy, HEART: RRR with normal S1 and S2, no murmurs, no gallops, no JVD appreciated LUNG: clear to auscultation bilaterally LYMPH NODES: No palpable superficial adenopathy ABDOMEN: Bowel sounds normoactive, no bruits, soft, non-tender, without organomegaly or palpable masses EXTREMITIES: Extremities warm and well perfused without clubbing, cyanosis, rash or edema NEURO: Oriented X 3, no focal weakness LABS: ALK PHOS HISTORY: Testing: Review of Lab results , interpreted Review of Imaging, interpreted Review of External Documentation Tests ordered -full anemia labs ASSESSMENT SNOMED CT(R) 1. Anemia ANEMIA PLAN: Anemia: -Chronic borderline anemia -Stable Normal renal and thyroid functions -Alk phos is mildly elevated, which is a chronic stable elevation since at least 2014. The other liver enzymes are normal -No clinical bleeding or black stools -Asymptomatic -? Anemia of chronic disease -Check full anemia panel -FOV in 2 weeks to review results Christine Perez PA-C Cc: Everette Hastings MD Sign: Christine Perez PA-C Hematology/Oncology [facility] [phone] documented in this encounter Plan of Treatment Upcoming Encounters Date Type Department Care Team (Late st Contact Info) Description 09/22/2025 1:30 PM EDT Office Visit [facility] Hematology Oncology [address] [place] [phone] Christine Perez PA [address] [place] [address] 11/30/2025 11:00 AM EDT Ancillary Procedure [facility] - [address] [place] [address] [place] [phone] documented as of this encounter Procedures Procedure Name Priority Date/Time Associated Diagnosis Comments ..MISCELLANEOUS REFERENCE LAB TEST 03/06/2024 documented in this encounter Results * Miscellaneous reference lab test (03/06/2024) us Provider Onbase LAB BLOOD ORDERABLES Final Re sult documented in this encounter Visit Diagnoses Not on filedocumented in this encounter Care Teams Health Science Writer Relationship Specialty Start Date End Date Everette Hastings MD [address] [facility] [address] [place] [address] PCP - General 01/30/24 documented as of this encounter
--- OUTSIDE RECORDS SUMMARY | 2024-03-21 12:05 | XMS_ITS | Encounter Summary ---
Author Organization [facility] Address [address] [place] [address] Care Team Providers Care Charge Poster Name Role Phone Everette Hastings MD Primary Care Provider [phone] Encounter Details Date Type Department Care Team (Late st Contact Info) Description 03/21/2024 1:05 PM EDT Hospital Encounter TH HISTORIC ENCOUNTERS EASTERN CONVERSION ONLY Christine Perez PA [address] [place] [address] Social History Tobacco Use Types Packs/Day Years [...] Sign Reading Time Taken Comments Blood Pressure 139/64 03/21/2024 1:24 PM EDT Sitting Left arm Pulse 65 03/21/2024 1:24 PM EDT Temperature - - Respiratory Rate - - Oxygen Saturation - - Inhaled Oxygen Concentration - - Weight 67 kg (147 lb 12.8 oz) 03/21/2024 1:24 PM EDT Height 154.9 cm (5' 1 ) 03/06/2024 10:4 3 AM EDT Body Mass Index 27.93 03/06/2024 10:43 AM EDT documented in this encounter Progress Notes * FER Montero - 03/21/2024 1:30 PM EDT Images from the original note were not included. Progress Notes by Christine Perez PA-C at 03/21/2024 1:30 PM Author: Christine Perez PA-C Service: -- Author Type: Physician Test Designer Filed: 03/21/2024 2:15 PM Encounter Date: 03/21/2024 Status: Signed Tuber Operator: Christine Perez PA-C (Physician Test Designer) Cosigner: Mahin Beyer MD at 03/23/2024 3:[address] Venkata Gaviria, Thank you very much for referring this patient for consultation. HPI: 78-year-old Luxembourgish-speaking male who returns to our hematology clinic by PCP team for follow-up ofanemia. Patient is here to review lab results obtained at last visit. His anemia resolved. Anemia workup isessentially unremarkable except for low B12 level. No evidence of hemolysis, MGUS or MM. Patient has no new medical complaints at this time. (copied from prior note for clinical reference and updated as needed) Records indicate presence of borderline anemia for [...] cyst of kidney, right PAST SURGICAL HISTORY: No past surgical history on file. ? HISTORICAL CATARACT REMOVAL ? HISTORICAL COLONOSCOPY 11/23/2014 ? 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 FAMILY HISTORY: No family history on file. MEDICATIONS: Current Outpatient Medications: ? amLODIPine (NORVASC) [...] by mouth daily., Disp: , Rfl: ? Cyanocobalamin 1000 MCG CAPS, Take 1 capsule by mouth daily., Disp: 90 capsule, Rfl: 1 ? doxazosin (CARDURA) 2 MG tablet, Take [...] following No active allergies PHYSICAL EXAM: BP 139/64 (BP Location: Left arm) Pulse 65 Temp 97.7 ??F (36.5 ??C) (Temporal) Wt 67 kg (147 lb 12.8 oz) SpO2 98% BMI 27.93 kg/m?? APPEARANCE: Alert and in no acute distress EYES: PERRL, conjunctiva pink and sclera are Normal without icterus ORAL CAVITY: No erythema or exudates LUNG: Normal respiratory effort EXTREMITIES: Extremities warm and well perfused without clubbing, cyanosis, rash or edema Skin: no rash LABS: ALK PHOS HISTORY: Testing: Review of Lab results , interpreted Review of External Documentation Tests ordered - CBCd, CMP, B12 in [address](R) 1. Anemia due to vitamin B12 deficiency, unspecified B12 deficiency type NUTRITIONAL ANEMIA PLAN: Anemia; Low B12: -Chronic borderline- normal anemia -Stable -Normal renal and thyroid functions -Alk phos is mildly elevated, which is a chronic stable elevation since at least 2014. The other liver enzymes are normal -No clinical bleeding or black stools -Asymptomatic -B12 is in the lower end of normal -Cyanocobalamin sent in -Hemolysis, MGUS, and MM ruled out -I offered patient to have his B12/anemia monitored by his PCP team and he could return as needed in case of progression; however, patient prefers to come back here -FOV in 6 months with labs prior or sooner as needed Christine Perez PA-C Cc: Everette Hastings MD Sign: Christine Perez PA-C Hematology/Oncology [facility] [phone] documented in this encounter Plan of Treatment Upcoming Encounters Date Type Department Care Team (Late st Contact Info) Description 09/22/2025 1:30 PM EDT Office Visit [facility] Hematology Oncology [address] [place] [address] Christine Perez PA [address] [place] [address] 11/30/2025 11:00 AM EDT Ancillary Procedure [facility] - [address] [place] [address] documented as of this encounter Procedures Procedure Name Priority Date/Time Associated Diagnosis Comments ..MISCELLANEOUS REFERENCE LAB TEST 03/21/2024 ..MISCELLANEOUS REFERENCE LAB TEST 03/21/2024 documented in this encounter Results * Miscellaneous reference lab test (03/21/2024) Provider Onbase MD LAB BLOOD ORDERABLES Final Re sult * Miscellaneous reference lab test (03/21/2024) us Provider Onbase MD LAB BLOOD ORDERABLES Final Re sult documented in this encounter Visit Diagnoses Not on filedocumented in this encounter Care Teams Charge Poster Relationship Specialty Start Date End Date Everette Hastings MD [address] [facility] [address] [place] [address] PCP - General 01/30/24 documented as of this encounter
--- NOTE | 2025-05-05 14:15 | HO.NEPHOV ---
Vital Signs 05/05/25 14:17 Height 5 ft 2 in Weight 148 lb 2 oz BMI 27.1 BP 126/70 Blood Pressure Location Lt brachial Position Sitting Pulse 69 Pulse Source Pulse Oximeter Pulse Oximetry (%) 95 Oxygen Delivery Method Room Air Intake Visit Reasons: ENP: Hyperkalemia-LVM Medical Administrative Specialist Required: No Accompanied by: Father Allergies No Known Allergies Allergy (Verified 05/05/25 14:17) HPI Comments Details: Thank you for referring this pleasant 79 year old gentleman with H/O hyperkalemia, hypertension and renal cyst. He has H/O vascular disease including CAD needing CABG. He has normal renal function. He is a diabetic and has no H/O metabolic acidosis. He denies being on ACEI/ARB/Spironolactone/NSAID's. He denies taking salt substitutes. He usually takes K rich diet. Recently he had blood work in preparation for gall bladder surgery and was found to have serum K of 6( slightly hemolysed) & was treated with Kionex. He denies any H/O CHF, nausea, vomiting, diarrhea or orthostatic symptoms. He has no flank pain or H/O renal calculus. He has no family H/O cystic renal disease , ESRD or renal transplantation [facility] Medical History (Updated 05/05/25 @ 21:51 by Tello Parker MD) Type 2 diabetes mellitus without complication, without long-term current use of insulin Hx of myocardial infarction Wears dentures Simple cyst of kidney Essential hypertension Mixed hyperlipidemia Diabetes Venous insufficiency Hypertension BPH (benign prostatic hyperplasia) CAD (coronary artery disease) Surgical History Hx of oral surgery Hx of colonoscopy (2014) Hx of cataract extraction S/P CABG x 4 (2020) Social History Household Members: None Housing: House Are you a primary residential child care counselor to a significant other at home: No Do you presently have visiting nurse or other home services: No Alcohol intake: current Alcohol intake frequency: holidays/special occasions only Patient Tobacco Use Status: Never used Tobacco Current occupational status: retired Review of Systems Const All systems reviewed & are unremarkable except as noted in HPI and below Physical Exam Vital Signs: Last Vital Signs Pulse 69 05/05/25 14:17 BP 126/70 1209/25 14:17 Pulse Ox 95 05/05/25 14:17 Oxygen Delivery Method Room Air 05/05/25 14:17 BMI result Body Mass Index 27.1 Const General: comfortable and no acute distress Orientation/consciousness: patient oriented x3 HEENT Head: Yes normocephalic Mouth: Normal oral and palatal mucosa present Eyes EOM: EOMs intact bilaterally Neck Neck: Yes supple Resp Auscultation: clear to auscultation bilaterally Cardio Jugular venous distension: no JVD Rate: regular rate GI Palpation (GI): Soft to palpation Auscultation: normal bowel sounds General: Yes no CVA tenderness Back/Spine/Pelvis Back: no CVA tenderness Skin General skin exam: no rashes or lesions noted Neuro General: patient oriented x3 and moves all extremities Extrem General: Yes no pedal edema Results Reviewed Nephrology Results: Hgb, (14.0-18.0) 14.1 g/dl 02/05/25 WBC, (4.8-10.8) 5.4 X10*3/uL 02/05/25 Plt Count, (160-400) 187 X10*3/uL 02/05/25 Sodium, (135-145) 140 mmol/L Today Potassium, (3.3-5.1) 4.9 mmol/L Today Chloride, (96-108) 108 mmol/L Today Carbon Dioxide, (22-29) 25 mmol/L Today BUN, (9-16) 20 mg/dL H 02/11/25 Creatinine, (0.5-1.4) 0.71 mg/dL 02/11/25 Calcium, (8.4-10.2) 9.2 mg/dL 02/11/25 Assessment & Plan Assessment & Plan (1) Hypertension: Code(s): I10 - Essential (primary) hypertension Category: Medical Qualifiers: Hypertension type: primary hypertension Qualified Code(s): I10 - Essential (primary) hypertension (2) Hyperkalemia: Code(s): E87.5 - Hyperkalemia Category: Medical (3) Renal cyst: Code(s): N28.1 - Cyst of kidney, acquired Category: Medical Plan Likely has renovascular disease given H/O CAD, hypertension and need for CABG Has H/O Diabetes mellitus but no metabolic acidosis to suggest RTA Had not been taking ACEI/ARB/NSAID's or Spironolactone No H/O salt substitute intake/ volume contraction Given H/O DM and vascular disease, has a predliction for high K if there is change in intra renal hemodynamics No flank pain/hematuria/Renal stones/family H/O cystic renal disease/ESRD/transplant Good hydration/Avoid NSAID's/Blood work today, in 3 M and in 6M; Shall arrange imaging F/U@ next visit Answered all his and his daughter's questions; F/U given Orders: Orders Blood Urea Nitrogen 6 Months E87.5 - Hyperkalemia, I10 - Essential (primary) hypertension Creatinine 6 Months E87.5 - Hyperkalemia, I10 - Essential (primary) hypertension Electrolytes 3 Months E87.5 - Hyperkalemia, I10 - Essential (primary) hypertension Electrolytes Today E87.5 - Hyperkalemia, I10 - Essential (primary) hypertension Electrolytes 6 Months E87.5 - Hyperkalemia, I10 - Essential (primary) hypertension Coding Level of Care Code New Pt Level 4 (21602) Diagnoses Primary hypertension I10 Hypertension type: primary hypertension Hyperkalemia E87.5 Renal cyst N28.1
[2025-05-05 14:17] VITALS: BP 126/70; PULSE 69; O2SAT 95; BMI 27.1
--- OUTSIDE RECORDS SUMMARY | 2025-05-05 20:00 | XMS_ITS | Encounter Summary ---
Author Organization [facility] Address [address] [place] [address] Care Team Providers Care Brush Fabrication Supervisor Name Role Phone Everette Hastings MD Primary Care Provider [phone] Encounter Details Date Type Department Care Team (Late Contact Info) Description 02/27/2025 Results Follow-Up Internal Medicine - [place] [address] [phone] Everette Hastings MD 175 [facility] [address] [place] [address] Social History Tobacco Use Types Packs/Day Years [...] Description 09/22/2025 1:30 PM EDT Office Visit [facility] Hematology Oncology [address] [place] [phone] Christine Perez PA [address] [place] [address] 11/30/2025 11:00 AM EDT Ancillary Procedure [facility] [address] [facility] [address] [place] [phone] documented as of this encounter Visit Diagnoses Not on filedocumented in this encounter Care Teams Brush Fabrication Supervisor Relationship Specialty Start Date End Date Everette Hastings MD [address] [place] [address] PCP - General 01/30/24 documented as of this encounter
--- OUTSIDE RECORDS SUMMARY | 2025-05-05 20:00 | XMS_ITS | Clinical Summary ---
Author Organization [employer] Address [address] [facility] [address] [place] [address] Care Team Providers Care Clinical Quality Analyst Name Role Phone Unavailable Primary Care Provider [...]
--- OUTSIDE RECORDS SUMMARY | 2025-05-05 20:00 | XMS_ITS | Patient Health Record ---
[facility] Organization [facility] Address [address] [place] [address] Care Team Providers Care Roll Edge Machine Operator Name Role Phone Mehrdad PIZARRO, Rebel Primary Care Provider James Gabriel Unavailable [phone] Reason For Referral No Information Medications Medication [...] Status W/U Status Risk Notes Problem Onychomycosis (332890337) Onychomycosis (110.1) Active confirmed Problem Pain in limb (02452726) Pain in Limb (729.5) Active confirmed Problem Paronychia (01715394) Paronychia (681.11) Active confirmed Plan Of Treatment Pending Test Test Name Order Date 27848 I&D ABSCESS- SIMPLE,SINGLE 014 Insurance Providers Payer Name Payer Address Payer Phone Subscriber Number Group Number Insured Name Patient Relationship to Insured Coverage Start Date Coverage End Date [facility] Medicare Complete [address] [address] [place] [address] [phone] [id number] [place] Hilliard Self - patient is the insured Medical (General) History Medical History History ICD Code High blood pressure
--- OUTSIDE RECORDS SUMMARY | 2025-05-05 20:00 | XMS_ITS | Encounter Summary ---
Author Organization [employer] Address [address] [facility] [address] [place] [address] Care Team Providers Care Group Controller Name Role Phone Unavailable Primary Care Provider Unavailabl e Reason for Visit * Reason Onset Date Comments case back from lab??/appt 11/09/2023 Encounter Details Date Type Department Care Team (Late st Contact Info) Description 11/09/2023 Telephone [facility] ADULT DENTAL [address] [place] [address] Deirdre Heath DDS [address] [place] [address] case back from lab??/appt Social History Tobacco [...]
--- OUTSIDE RECORDS SUMMARY | 2025-05-05 20:00 | XMS_ITS | Clinical Summary ---
Author Organization [facility] Address [address] [place] [address] Phone Care Team Providers Care Air Lift Operator Name Role Phone Everette Hastings MD Primary Care Provider [phone] Allergies No known active allergies Medications aspirin 81 mg EC tablet Take 1 tablet (81 mg total) by mouth 1 (one) time each day. 01/24/2024 Active cholecalciferol (VITAMIN D-3) 50 mcg (2,000 unit) tablet Take 1 tablet (2,000 Units total) by mouth 1 (one) time each day in the morning. 01/24/2024 Active atorvastatin (LIPITOR) 80 mg tablet TAKE [...] TWICE DAILY 200 tablet 2 12/12/2024 Active sodium polystyrene (KAYEXALATE) 15 gram powder 30 g p.o. x 1 30 g 02/06/2025 Active doxazosin (CARDURA) 2 mg tablet TAKE 1 TABLET BY MOUTH AT BEDTIME 100 tablet 2 03/30/2025 Active Active Problems Problem Noted Date Diagnosed [...] complication, without long-term current use of insulin 02/23/2022 Mixed hyperlipidemia 08/08/2021 Assessment & Plan (12/08/2024 1:17 PM EDT): Continue with atorvastatin. 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 08/10/2020 Overview (12/08/2024): [...] Team Description 02/27/2025 Results Follow-Up Internal Medicine [address] [phone] Everette Hastings MD 02/25/2025 11:15 AM EDT Office Visit Internal Medicine [address] [phone] Everette Hastings MD Status post laparoscopic cholecystectomy (Primary Dx); Essential hypertension; Type 2 diabetes mellitus without complication, without long-term current use of insulin (CMS/HCC V24, CMS/HCC V28); Hyperkalemia 02/12/2025 Telephone Internal Medicine [address] [phone] Everette Hastings MD 02/10/2025 Telephone Internal Medicine [address] [phone] Everette Hastings MD 02/05/2025 Telephone Internal Medicine [address] [phone] More Quintana RN from Last 3 Months Surgical History Surgery [...] on file Sexual Orientation Not on file Last Filed Vital Signs [...] 09/22/2025 1:30 PM EDT Office Visit [facility] Hematology Oncology [address] [place] [phone] Christine Perez PA [address] [place] [address] 11/30/2025 11:00 AM EDT Ancillary Procedure [facility] - [facility] [address] Edmundo [address] [place] [phone] Health Maintenance Due Date Last Done Comments Diabetes: Annual Foot Exam 1955 Diabetes: Annual Retina Eye Exam 1955 Zoster Vaccines (2 of 3) 11/18/2015 09/23/2015 Falls Risk Assessment 05/06/2022 Hepatitis C Screening 05/06/2022 Social Influencers of Health Screening 05/06/2022 Diabetes: Annual Urine Albumin-Creatinine Ratio (uACR) 02/24/2023 02/24/2022 Medicare Annual Wellness Visit 11/28/2023 11/27/2022 Depression Screening 05/28/2024 COVID-19 Vaccine ( season) 2025 02/02/2025, 02/05/2024, 03/11/2023, Additional history exists Diabetes: Blood Sugar Control Test (HGBA1C) 08/27/2025 [...] exists RSV Immunization Adult Patients Completed 02/15/2023 Influenza Vaccine Completed 02/02/2025, , 02/15/2023, Additional [...] complication, without long-term current use of insulin ([facility]/HCC V24, CMS/HCC V28) Hyperkalemia Status post laparoscopic cholecystectomy COMPREHENSIVE METABOLIC PANEL Routine 02/26/2025 9:39 AM EDT Essential hypertension Type 2 diabetes mellitus without complication, without long-term current use of insulin (CMS/HCC V24, CMS/HCC V28) Hyperkalemia Status post laparoscopic cholecystectomy BASIC METABOLIC PANEL Routine 02/09/2025 2:14 PM EDT Hyperkalemia LIPID PANEL WITH REFLEX TO DIRECT LDL Routine 06/26/2024 1:16 PM EST Coronary artery disease involving squaxin coronary artery of squaxin heart without angina pectoris Type 2 diabetes mellitus without complication, without long-term current use of insulin (CMS/[facility] V24, CMS/[facility] V28) Essential hypertension Mixed hyperlipidemia URINE ALBUMIN CREATININE RATIO Routine 02/24/2022 from Last 3 Months or Most Recently Relevant to Health Maintenance Results * (ABNORMAL) Hemoglobin A1c (02/26/2025 9:39 AM EDT) Hemoglobin A1C 6.6(H) <6.5 % LAB CHEMISTRY METHOD 02/26/2025 10:22 PM EDT [facility] Mean Bld Glu Estim. 143 mg/dL LAB CHEMISTRY METHOD 02/26/2025 10:22 PM EDT [facility] Blood Venous blood specimen / Unknown Venipuncture / Unknown 02/26/2025 9:39 AM EDT 02/26/2025 9:39 AM EDT us Everette Hastings MD LAB BLOOD ORDERABLES Final Resul t [facility] [address] [place] [address], * (ABNORMAL) Comprehensive metabolic panel (02/26/2025 9:39 AM EDT) [facility] Sodium 139 133 - 145 mmol/L LAB CHEMISTRY METHOD 02/26/2025 2:48 PM [facility] Potassium 4.7 3.5 - 5.5 mmol/L LAB CHEMISTRY METHOD 02/26/2025 2:48 PM [facility] Chloride 109 96 - 110 mmol/L LAB CHEMISTRY METHOD 02/26/2025 2:48 PM [facility] CO2 25 21 - 32 mmol/L LAB CHEMISTRY METHOD 02/26/2025 2:48 PM [facility] Anion Gap 5 3 - 11 LAB CHEMISTRY METHOD 02/26/2025 2:48 PM [facility] Glucose 103(H) 70 - 100 mg/dL LAB CHEMISTRY METHOD 02/26/2025 2:48 PM [facility] BUN 14 5 - 25 mg/dL LAB CHEMISTRY METHOD 02/26/2025 2:48 PM [facility] Creatinine 0.69(L) 0.70 - 1.30 mg/dL LAB CHEMISTRY METHOD 02/26/2025 2:48 PM [facility] eGFR 94 >=60 mL/min/1. 73m2 LAB CHEMISTRY METHOD 02/26/2025 2:48 PM [facility] Comment:Calculation based on the Chronic Kidney Disease Epidemiology Collaboration (CKD-EPI) equation refit without adjustment for race. BUN/Creatinine Ratio 20.3 LAB CHEMISTRY METHOD 02/26/2025 2:48 PM [facility] Calcium 9.2 8.5 - 10.5 mg/dL LAB CHEMISTRY METHOD 02/26/2025 2:48 PM [facility] AST (SGOT) 25 10 - 42 unit/L LAB CHEMISTRY METHOD 02/26/2025 2:48 PM [facility] ALT (SGPT) 24 10 - 60 unit/L LAB CHEMISTRY METHOD 02/26/2025 2:48 PM EDT [facility] Alkaline Phosphatase 136(H) 42 - 121 unit/L LAB CHEMISTRY METHOD 02/26/2025 2:48 PM EDT [facility] Total Protein 6.6 6.0 - 8.0 g/dL LAB CHEMISTRY METHOD 02/26/2025 2:48 PM EDT [facility] Albumin 3.2 3.2 - 5.0 g/dL LAB CHEMISTRY METHOD 02/26/2025 2:48 PM EDT [facility] Total Bilirubin 0.9 0.0 - 1.4 mg/dL LAB CHEMISTRY METHOD 02/26/2025 2:48 PM EDT [facility] Blood Venous blood specimen / Unknown Venipuncture / Unknown 02/26/2025 9:39 AM EDT 02/26/2025 9:39 AM EDT us Everette Hastings MD LAB BLOOD ORDERABLES Final Resul t [facility] [address] [place] [address], * (ABNORMAL) Basic metabolic panel (02/09/2025 2:14 PM EDT) Sodium 139 133 - 145 mmol/L LAB CHEMISTRY METHOD 02/09/2025 6:23 PM [facility] Potassium 4.8 3.5 - 5.5 mmol/L LAB CHEMISTRY METHOD 02/09/2025 6:23 PM [facility] Chloride 107 96 - 110 mmol/L LAB CHEMISTRY METHOD 02/09/2025 6:23 PM [facility] CO2 26 21 - 32 mmol/L LAB CHEMISTRY METHOD 02/09/2025 6:23 PM [facility] Anion Gap 6 3 - 11 LAB CHEMISTRY METHOD 02/09/2025 6:23 PM [facility] Glucose 95 70 - 100 mg/dL LAB CHEMISTRY METHOD 02/09/2025 6:23 PM EDT [facility] BUN 26(H) 5 - 25 mg/dL LAB CHEMISTRY METHOD 02/09/2025 6:23 PM T [facility] Creatinine 0.67(L) 0.70 - 1.30 mg/dL LAB CHEMISTRY METHOD 02/09/2025 6:23 PM EDT [facility] eGFR 95 >=60 mL/min/1. 73m2 LAB CHEMISTRY METHOD 02/09/2025 6:23 PM EDT [facility] Comment:Calculation based on the Chronic Kidney Disease Epidemiology Collaboration (CKD-EPI) equation refit without adjustment for race. BUN/Creatinine Ratio 38.8 LAB CHEMISTRY METHOD 02/09/2025 6:23 PM EDT [facility] Calcium 9.4 8.5 - 10.5 mg/dL LAB CHEMISTRY METHOD 02/09/2025 6:23 PM EDT [facility] Blood Venous blood specimen / Unknown Venipuncture / Unknown 02/09/2025 2:14 PM EDT 02/09/2025 2:15 PM EDT us Everette Hastings MD LAB BLOOD ORDERABLES Final Resul t [facility] [address] [place] [address], * Lipid panel with reflex to direct LDL (06/26/2024 1:16 PM EST) Cholesterol 78 0 - 200 mg/dL LAB CHEMISTRY METHOD 06/26/2024 6:36 PM EST [facility] Triglycerides 31 0 - 150 mg/dL LAB CHEMISTRY METHOD 06/26/2024 6:36 PM EST [facility] HDL 52 >=40 mg/dL LAB CHEMISTRY METHOD 06/26/2024 6:36 PM EST [facility] LDL Calculated 20 0 - 100 mg/dL LAB CHEMISTRY METHOD 06/26/2024 6:36 PM EST [facility] VLDL Cholesterol Reyes 6.2 mg/dL LAB CHEMISTRY METHOD 06/26/2024 6:36 PM EST [facility] Non HDL Chol. (LDL+VLDL) 26 <145 mg/dL LAB CHEMISTRY METHOD 06/26/2024 6:36 PM EST [facility] Chol/HDL Ratio 1.5 0.0 - 4.4 LAB CHEMISTRY METHOD 06/26/2024 6:36 PM EST [facility] Blood Venous blood specimen / Unknown Venipuncture / Unknown 06/26/2024 1:16 PM EST 06/26/2024 1:16 PM EST Everette Hastings MD LAB BLOOD ORDERABLES Final Resul t Performing Organization Address City/State/[facility] Co de Phone Number [facility] [address] [place] [address], * Urine Albumin Creatinine Ratio (02/24/2022) Urine Albumin Creatinine Ratio abstracted Nancy Provider HEALTH MAINTENANCE Final Result from Last 3 Months or Most Recently Relevant to Health Maintenance Insurance [employer] MEDICARE MEDICAID - [place] Care Teams Air Lift Operator Relationship Specialty Start Date End Date Everette Hastings MD [address] [phone] PCP - General 01/30/24
--- OUTSIDE RECORDS SUMMARY | 2025-05-05 20:00 | XMS_ITS | Clinical Summary ---
Author Organization [facility] Prior to 10/25/24 Address [address] [place] [address] Care Team Providers Care Canvass Manager Name Role Phone Everette Hastings MD Primary [...] age to complete this topic Care Teams Canvass Manager Relationship Specialty Start Date End Date Everette Hastings MD PCP - General Internal Medicine 01/30/24
== END 2025-05-05 14:40 | disposition home or self-care (01) ==
LOC: HO.HKAS 14:01
PROVIDERS: PCP Internal Medicine; Referring Provider Internal Medicine; Visit Provider Internal Medicine Nephrology
DX: I10 Essential (primary) hypertension (principal); E87.5 Hyperkalemia; N28.1 Cyst of kidney, acquired
CPT/HCPCS: 99204

== ENCOUNTER 2025-05-05 14:00 | Outpatient (REF) | payer MEDICARE, SELFPAY ==
[2025-05-05 18:28] LABS: Anion Gap 12 (12-20); Carbon Dioxide 25 mmol/L (22-29); Chloride 108 mmol/L (96-108); Potassium 4.9 mmol/L (3.3-5.1); Sodium 140 mmol/L (135-145)
== END 2025-05-05 14:01 | disposition home or self-care (01) ==
LOC: HO.HKASLDS 14:00
PROVIDERS: PCP Internal Medicine; Referring Provider Internal Medicine; Visit Provider Internal Medicine Nephrology
DX: I10 Essential (primary) hypertension (principal); E78.5 Hyperlipidemia, unspecified; N28.1 Cyst of kidney, acquired; Z95.1 Presence of aortocoronary bypass graft; Z86.79 Personal history of other diseases of the circulatory system; E11.9 Type 2 diabetes mellitus without complications
CPT/HCPCS: 36415; 80051; 99202